=== PATIENT | male | born 1975 | race Hispanic/Latino ===

== ENCOUNTER 2016-11-06 09:25 | Emergency (ER) | payer OTHER ==
[2016-11-06] MEDS ORDERED: NACL 0.9% 1000 ML 1,000 ML IV ONE (09:37)
[2016-11-06] MEDS ORDERED: TORADOL IV ONE (09:37)
[2016-11-06] MEDS ORDERED: ZOFRAN IV ONE (09:38)
[2016-11-06] MEDS ORDERED: DILAUDID IV ONE ×2 (09:47→11:25)
--- NOTE | 2016-11-06 09:47 | Emergency Department Report ---
ED Male HPI - General Stated complaint: LEFT SIDE ABD/BACK/GROIN PAIN Time Seen by Provider: 11/06/16 09:35 - History of Present Illness Initial comments: 41-year-old male with past medical history of diabetes, anxiety and kidney stones. He comes in today for complaint of left side abdomen and back and groin pain that woke him up around 4 AM this morning. Patient reports that his progressively gotten worse. This required for him to come in to be evaluated. Patient does report that he has diabetes and is currently on NovoLog he needs to be on a long-lasting insulin but insurance is trying to work that out. He does report that his diabetes is not stable. He also reports that his on amoxicillin for dental work as well as ibuprofen and Percocet. Does report anxiety and he is on a lot of pram 2 mg extended release daily last dose was yesterday. Patient reports that he's been suffering from kidney stones since 2000. He reports he's had multiple CT scans and at this time prefers not to have one. MD Complaint: groin pain - Related Data Previous Rx's Medication Instructions Recorded Last Taken Type Ibuprofen [Motrin 800 MG tab] 800 mg PO Q8HR PRN #21 tablet 06/26/16 Unknown Rx Ondansetron [Zofran Odt] 4 mg PO Q8HR PRN #12 tab.rapdis 06/26/16 Unknown Rx Tamsulosin [Flomax] 0.4 mg PO QDAY #30 cap 11/06/16 Unknown Rx oxyCODONE /ACETAMINOPHEN [Percocet 1 tab PO Q6HR PRN #8 tablet 11/06/16 Unknown Rx 5/325 mg] Allergies Allergy/AdvReac Type Severity Reaction Status Date / Time lamotrigine [From Lamictal] Allergy Rash Verified 06/25/16 21:56 trazodone Allergy Unknown Verified 06/25/16 21:56 wasp venom Allergy Swelling Verified 06/25/16 21:56 ED Review of Systems ROS: Stated complaint: LEFT SIDE ABD/BACK/GROIN PAIN Other details as noted in HPI Constitutional: denies: chills, fever Eyes: denies: eye pain, eye discharge, vision change ENT: denies: ear pain, throat pain Respiratory: denies: cough, shortness of breath, wheezing Cardiovascular: denies: chest pain, palpitations Endocrine: no symptoms reported Gastrointestinal: abdominal pain (left pelvic pain) Genitourinary: other (left flank pain and left groin pain.) Skin: denies: rash, lesions Neurological: denies: headache, weakness, paresthesias Psychiatric: anxiety ED Past Medical Hx - Past Medical History Hx Diabetes: Yes Hx Kidney Stones: Yes Hx Psychiatric Treatment: Yes (anxiety) Additional medical history: anxiety. adhd - Surgical History Hx Appendectomy: Yes Additional Surgical History: tonsils and adnoids removed. ACDF- 3 levels of fusion. carpal tunnel release. Chiari malformations - Social History Smoking Status: Never Smoker Substance Use Type: Alcohol - Medications Home Medications: Home Medications Medication Instructions Recorded Confirmed Last Taken Type Ibuprofen [Motrin 800 MG tab] 800 mg PO Q8HR PRN #21 tablet 06/26/16 Unknown Rx Ondansetron [Zofran Odt] 4 mg PO Q8HR PRN #12 tab.rapdis 06/26/16 Unknown Rx Tamsulosin [Flomax] 0.4 mg PO QDAY #30 cap 11/06/16 Unknown Rx oxyCODONE /ACETAMINOPHEN [Percocet 1 tab PO Q6HR PRN #8 tablet 11/06/16 Unknown Rx 5/325 mg] ED Physical Exam - General General appearance: alert, in no apparent distress, anxious, other (nontoxic) - Head Head exam: Present: atraumatic - ENT ENT exam: Present: normal exam, mucous membranes moist - Neck Neck exam: Present: normal inspection, full ROM - Respiratory Respiratory exam: Present: normal lung sounds bilaterally - Cardiovascular Cardiovascular Exam: Present: regular rate, normal rhythm - GI/Abdominal GI/Abdominal exam: Present: soft, tenderness (left lower groin area), normal bowel sounds. Absent: distended - Extremities Exam Extremities exam: Present: normal inspection, full ROM ED Course Vital Signs 11/06/16 10:21 Temperature 98.3 F Pulse Rate 110 H Respiratory 18 Rate Blood Pressure 121/64 O2 Sat by Pulse 98 Oximetry ED Medical Decision Making - Lab Data Result diagrams: 11/06/16 10:47 11/06/16 10:47 - Radiology Data Radiology results: report reviewed, image reviewed IMPRESSION: Unremarkable abdomen. No nephrolithiasis is confidently identified on x-ray. Transcribed By: TTR Dictated By: DELGADO VARMA JR, MD Electronically Authenticated By: DELGADO VARMA JR, MD Signed Date/Time: 11/06/16 1125 - Medical Decision Making Patient's been evaluated by this provider fast track. IV insertion was placed, Toradol normal saline Dilaudid was ordered for patient. Ativan was ordered 1 mg Urinalysis CBC BMP CT was ordered. Patient CT request and a KUB. Discusses patient importance of a CAT scan just to notice if there is any obstruction patient verbalized understanding we will do a KUB to evaluate where the stone possibly could be. To be continually monitored. Critical care attestation.: If time is entered above; I have spent that time in minutes in the direct care of this critically ill patient, excluding procedure time. ED Disposition Clinical Impression: Flank pain, acute, Diabetes 1.5, managed as type 2 Disposition: DISCHARGED TO HOME OR SELFCARE Is pt being admited?: No Does the pt Need Aspirin: No Condition: Stable Instructions: Flank Pain (ED), Diabetes Mellitus Type 2 in Adults (ED) Additional Instructions: Please follow up with a urologist for further evaluation. Pain medication as prescribed. Prescriptions: oxyCODONE /ACETAMINOPHEN [Percocet 5/325 mg] 1 tab PO Q6HR PRN #8 tablet PRN Reason: Pain Tamsulosin [Flomax] 0.4 mg PO QDAY #30 cap Referrals: PRIMARY CARE, [Primary Care Provider] - 3-5 Days STANLEY ADAM MD [Staff Physician] - 3-5 Days NANCY MANCINI MD [Staff Physician] - 3-5 Days Forms: Work/School Release Form(ED)
[2016-11-06 10:26] VITALS: BP 121/64
[2016-11-06] MEDS ORDERED: XANAX PO ONE (10:41)
[2016-11-06 11:08] LABS: Hemoglobin 13.1 gm/dl (11.8-15.2); Mean Corpuscular HGB Conc 34 % (32-34); Mean Corpuscular Hemoglobin 29 pg (28-32); Mean Corpuscular Volume 84 fl (84-94); Platelet Count 177 K/mm3 (140-440); Red Blood Count 4.55 M/mm3 (3.65-5.03); Red Cell Distribution Width 13.3 % (13.2-15.2); White Blood Count 6.7 K/mm3 (4.5-11.0)
[2016-11-06 11:23] LABS: Anion Gap 17 mmol/L; BUN/Creatinine Ratio 11.42; Blood Urea Nitrogen 8 mg/dL (9-20); Calcium 8.4 mg/dL (8.4-10.2); Carbon Dioxide 20 mmol/L (22-30); Chloride 102.7 mmol/L (98-107); Glucose 330 mg/dL (75-100); Sodium 136 mmol/L (137-145)
--- NOTE | 2016-11-06 11:32 | XRay Report ---
SUPINE KUB: History: Kidney stone. The abdominal gas pattern is unremarkable. No masses or organomegaly is identified and there is no gross evidence of free air or fluid. No significant soft tissue calcifications are noted. IMPRESSION: Unremarkable abdomen. No nephrolithiasis is confidently identified on x-ray.
[2016-11-06 12:25] LABS: Bilirubin,Urine NEG (Negative); Blood,Urine NEG (Negative); Ketones,Urine 20 mg/dL (Negative); Leukocyte Esterase,Urine NEG (Negative); Mucus,Urine FEW /HPF; Nitrite,Urine NEG (Negative); Protein,Urine <15 mg/dL mg/dL (Negative); Urobilinogen,Urine < 2.0 mg/dL (<2.0)
== END 2016-11-06 13:26 | disposition home or self-care (01) ==
LOC: ED 09:25
DX: R10.32 Left lower quadrant pain (principal); E11.9 Type 2 diabetes mellitus without complications; F41.9 Anxiety disorder, unspecified; Z79.4 Long term (current) use of insulin; Z91.038 Other insect allergy status; Z88.8 Allergy status to other drugs, medicaments and biological substances
CPT/HCPCS: 36415; 74000; 80048; 81001; 82962; 85027; 96361; 96374; 96375; 96376; 99284; J1170; J1885; J2405; J7030

== ENCOUNTER 2017-01-02 11:14 | Emergency (ER) | payer OTHER ==
[2017-01-02] MEDS ORDERED: NACL 0.9% 1000 ML 1,000 ML ONE (11:50)
[2017-01-02] MEDS ORDERED: MORPHINE IV ONE (12:07)
--- NOTE | 2017-01-02 12:08 | Emergency Department Report ---
HPI - General Chief Complaint: Abdominal Pain Time Seen by Provider: 01/02/17 11:46 - HPI HPI: This is a 41-year-old male who presents to emergency Department with complaint of pain to the left side of the back and flank and he believes it is a kidney stone. His history of multiple kidney stones and says that this feels the same. He says that he usually passes it on his own. He denies any dysuria or hematuria. The pain was mild last night and he was able to fall sleep but he woke up with a significant amount of pain. He took a Percocet for his discomfort without much relief. He goes to an urgent care for primary care needs and his urologist is Dr. Ku. 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 No recent travel or sick contacts at home. He denies any tobacco abuse. ED Past Medical Hx - Past Medical History Hx Diabetes: Yes Hx Kidney Stones: Yes Hx Psychiatric Treatment: Yes (anxiety / ADHD) Additional medical history: anxiety. adhd - Surgical History Hx Appendectomy: Yes Additional Surgical History: tonsils and adnoids removed. ACDF- 3 levels of fusion. carpal tunnel release. Chiari malformations. KIDNEY STONE REMOVAL - Social History Smoking Status: Never Smoker Substance Use Type: None - Medications Home Medications: Home Medications Medication Instructions Recorded Confirmed Last Taken Type Ibuprofen [Motrin 800 MG tab] 800 mg PO Q8HR PRN #21 tablet 06/26/16 Unknown Rx Ondansetron [Zofran Odt] 4 mg PO Q8HR PRN #12 tab.rapdis 06/26/16 Unknown Rx Tamsulosin [Flomax] 0.4 mg PO QDAY #30 cap 11/06/16 Unknown Rx oxyCODONE /ACETAMINOPHEN [Percocet 1 tab PO Q6HR PRN #8 tablet 11/06/16 Unknown Rx 5/325 mg] ED Review of Systems ROS: Stated complaint: POSS KIDNEY STONE Other details as noted in HPI Comment: All other systems reviewed and negative Constitutional: denies: chills, fever Eyes: denies: eye pain, eye discharge, vision change ENT: denies: ear pain, throat pain Respiratory: denies: cough, shortness of breath, wheezing Cardiovascular: denies: chest pain, palpitations Gastrointestinal: abdominal pain (flank pain). denies: nausea Genitourinary: denies: urgency, dysuria Musculoskeletal: back pain. denies: joint swelling, arthralgia Skin: denies: rash, lesions Neurological: denies: headache, weakness, paresthesias Physical Exam - Physical Exam Vital Signs: Vital Signs 01/02/17 11:25 Temperature 98.5 F Pulse Rate 84 Respiratory 22 Rate Blood Pressure 172/84 O2 Sat by Pulse 100 Oximetry Physical Exam: GENERAL: The patient is well-developed well-nourished. HEENT: Normocephalic. Atraumatic. Extraocular motions are intact. Patient has moist mucous membranes. Pupils equal reactive to light bilaterally. NECK: Supple. Trachea is midline. CHEST/LUNGS: Clear to auscultation. There is no respiratory distress noted. HEART/CARDIOVASCULAR: Regular. There is no tachycardia. There is no gallop rub or murmur. ABDOMEN: Abdomen is soft. Unable to reproduce left flank pain to palpation. Patient has normal bowel sounds. There is no abdominal distention. SKIN: Skin is warm and dry. NEURO: The patient is awake, alert, and oriented. The patient is cooperative. The patient has no focal neurologic deficits. The patient has normal speech. MUSCULOSKELETAL: There is no tenderness or deformity. There is no limitation range of motion. There is no evidence of acute injury. BACK: No midline thoracic or lumbar tenderness to palpation or deformity. Positive left CVA tenderness to palpation. ED Course Vital Signs 01/02/17 11:25 Temperature 98.5 F Pulse Rate 84 Respiratory 22 Rate Blood Pressure 172/84 O2 Sat by Pulse 100 Oximetry ED Medical Decision Making - Lab Data Result diagrams: 01/02/17 11:57 01/02/17 11:57 - Radiology Data Radiology results: report reviewed, image reviewed interpreted by me: Abdominal x-ray shows a large amount of bowel gas and stool throughout the intestines. Renal ultrasound does not show any hydronephrosis, calculus or any acute processes. CT ABDOMEN AND PELVIS WITHOUT CONTRAST INDICATION: Abdominal pain. COMPARISON: None similar. FINDINGS: Noncontrast abdomen and pelvis CT performed. LUNG BASES: Nonspecific distal esophageal wall prominence/thickening, not excluded for gastroesophageal reflux and/or hiatal hernia, amongst others. ABDOMEN: Please note that sensitivity to detect small visceral lesions is limited due to the absence of intravenous or oral contrast. However, grossly unremarkable unenhanced liver, spleen, gallbladder, pancreas, adrenals, nonaneurysmal abdominal aorta, IVC and kidneys. No ascites or size significant adenopathy. Few small right lower quadrant mesenteric lymph nodes measure up to 7 mm, axial image 125, series 2. Nonopacified GI tract evaluation limited, though grossly nonobstructive. Few right lower quadrant probable appendectomy clips. Mild to moderate colonic stool/possible constipation. Tiny fat-containing umbilical hernia with a neck of 4 mm. PELVIS: Grossly unremarkable non-opacified urinary bladder, seminal vesicles, prostate and rectosigmoid. Small left hemipelvic phlebolith. No free fluid or significant adenopathy. No acute osseous abnormality. CONCLUSION: No acute CT abnormality with few incidental findings, as above. - Medical Decision Making 41-year-old male presents with left-sided flank pain that he feels is very consistent with previous kidney stones. Labs are mostly unremarkable including no urinary tract infection or significant hematuria. A renal ultrasound was done to try and avoid any type of CT imaging. The ultrasound did not show any hydronephrosis, calculus or any acute process. I then did a KUB x-ray hoping to see some type of calculus but once again it just showed some signs of nonobstructive bowel gas and increased stool. The patient continues to say that he has significant discomfort so a CT of the abdomen and pelvis was done that also did not show any calculus or any acute process. Patient was given IV fluid resuscitation, pain medication, and upon reevaluation he says he is feeling improved. He has a significant amount of pain medication at home from his pain management physician. He says that he has good follow-up with primary care, gastroenterology, urology. He will return to the ED with any worsening symptoms or any acute distress. The patient presented with a blood sugar that was about 550. There is a mild anion gap and some mild venous acidosis. However the patient was given some IV fluid resuscitation, IV insulin and his blood sugar came down to about 260. I am not convinced that he is in any significant DKA. The patient admits to drinking a large amount of Gatorade over the past 12 hours or so in order to "flush my system." He will go back to his normal diabetes diet and medication regiment and will follow-up with his primary care doctor at the urgent care. - Differential Diagnosis nephrolithiasis, cholelithiasis, hydronephrosis, pancreatitis, colitis ana Critical Care Time: No Critical care attestation.: If time is entered above; I have spent that time in minutes in the direct care of this critically ill patient, excluding procedure time. ED Disposition Clinical Impression: Left flank pain, Hyperglycemia Hypertension Qualifiers: Hypertension type: essential hypertension Qualified Code(s): I10 - Essential ( primary) hypertension Disposition: DC- TO HOME OR SELFCARE Is pt being admited?: No Condition: Stable Instructions: Hypertension (ED), Flank Pain (ED), Diabetic Hyperglycemia (ED) Additional Instructions: Please follow-up with your primary care doctor. It is also recommended that she see your automobile club membership sales agent. Return to the emergency department with any worsening of your symptoms or any acute distress. Please try and stay away from foods are high in salt and caffeinated products to help with her blood pressure. Please try and stay away from foods are high and sugar, carbohydrates and starches to help with her diabetes. Continue with your diabetes regimen. Referrals: PRIMARY CARE, [Primary Care Provider] - [facility] Time of Disposition: 15:09
[2017-01-02 12:16] LABS: Basophils % (Auto) 0.9 % (0.0-1.8); Eosinophils % (Auto) 0.6 % (0.0-4.3); Hematocrit 43.7 % (35.5-45.6); Hemoglobin 15.1 gm/dl (11.8-15.2); Mean Corpuscular HGB Conc 35 % (32-34); Mean Corpuscular Hemoglobin 30 pg (28-32); Mean Corpuscular Volume 85 fl (84-94); Platelet Count 167 K/mm3 (140-440); Red Blood Count 5.13 M/mm3 (3.65-5.03); Red Cell Distribution Width 13.5 % (13.2-15.2); White Blood Count 10.3 K/mm3 (4.5-11.0)
[2017-01-02 12:21] LABS: Bilirubin,Urine NEG (Negative); Blood,Urine NEG (Negative); Ketones,Urine NEG (Negative); Leukocyte Esterase,Urine NEG (Negative); Mucus,Urine FEW /HPF; Nitrite,Urine NEG (Negative); Protein,Urine <15 mg/dL mg/dL (Negative); RBC,Urine < 1.0 /HPF (0.0-6.0); Urobilinogen,Urine < 2.0 mg/dL (<2.0); WBC,Urine < 1.0 /HPF (0.0-6.0)
[2017-01-02] MEDS ORDERED: DILAUDID ONE (12:21)
[2017-01-02 12:27] LABS: Albumin 4.1 g/dL (3.9-5); Albumin/Globulin Ratio 1.7 %; Alkaline Phosphatase 92 units/L (35-129); Anion Gap 20 mmol/L; BUN/Creatinine Ratio 8.75; Bilirubin,Total < 0.20 mg/dL (0.1-1.2); Blood Urea Nitrogen 7 mg/dL (9-20); Calcium 9.5 mg/dL (8.4-10.2); Carbon Dioxide 22 mmol/L (22-30); Chloride 92.8 mmol/L (98-107); Sodium 131 mmol/L (137-145); Total Protein 6.5 g/dL (6.3-8.2)
[2017-01-02 12:31] LABS: Glucose 560 mg/dL (75-100)
[2017-01-02] MEDS ORDERED: DILAUDID IV ONE ×3 (12:31→14:51)
[2017-01-02] MEDS ORDERED: NACL 0.9% 1000 ML 1,000 ML IV ONE ×3 (12:34→13:31)
[2017-01-02 12:41] LABS: Alanine Aminotransferase < 5 units/L (7-56)
--- NOTE | 2017-01-02 13:27 | Ultrasound Report ---
ULTRASOUND RENAL INDICATION: Flank pain. History of kidney stones, passed per patient. COMPARISON: 06/25/2016. FINDINGS: Renal sonography demonstrates normal renal cortical echogenicity. Grossly preserved renal contours. No hydronephrosis. Imaged liver appears coarse, echogenic and enlarged to approximately 19 cm in length. RIGHT KIDNEY measures 10.5 x 6.1 x 5 cm with cortical thickness of 1.7 cm. LEFT KIDNEY estimated at 11.9 x 5.8 x 6.1 cm with cortical thickness of 2.3 cm. URINARY BLADDER suboptimally distended and assessed, though grossly unremarkable in so far seen. CONCLUSION: No acute renal sonographic abnormality with fatty, enlarged liver suspected, as described. Please correlate. Thank you for the opportunity to participate in this patient's care.
--- NOTE | 2017-01-02 14:47 | XRay Report ---
ABDOMEN RADIOGRAPHS INDICATION: Flank pain. Evaluate for stone. COMPARISON: 11/06/2016 FINDINGS: Frontal abdominal radiographs demonstrate nonobstructive bowel gas pattern without focal suspicious calcifications, pneumatosis or pneumoperitoneum. Moderate colonic stool/possible constipation. Lung bases not included. Mild spinal curvature/possible scoliosis. CONCLUSION: Possible constipation without acute radiographic abnormality. Please correlate. Thank you for the opportunity to participate in this patient's care.
--- NOTE | 2017-01-02 14:55 | Cat Scan Report ---
CT ABDOMEN AND PELVIS WITHOUT CONTRAST INDICATION: Abdominal pain. COMPARISON: None similar. FINDINGS: Noncontrast abdomen and pelvis CT performed. LUNG BASES: Nonspecific distal esophageal wall prominence/thickening, not excluded for gastroesophageal reflux and/or hiatal hernia, amongst others. ABDOMEN: Please note that sensitivity to detect small visceral lesions is limited due to the absence of intravenous or oral contrast. However, grossly unremarkable unenhanced liver, spleen, gallbladder, pancreas, adrenals, nonaneurysmal abdominal aorta, IVC and kidneys. No ascites or size significant adenopathy. Few small right lower quadrant mesenteric lymph nodes measure up to 7 mm, axial image 125, series 2. Nonopacified GI tract evaluation limited, though grossly nonobstructive. Few right lower quadrant probable appendectomy clips. Mild to moderate colonic stool/possible constipation. Tiny fat-containing umbilical hernia with a neck of 4 mm. PELVIS: Grossly unremarkable non-opacified urinary bladder, seminal vesicles, prostate and rectosigmoid. Small left hemipelvic phlebolith. No free fluid or significant adenopathy. No acute osseous abnormality. CONCLUSION: No acute CT abnormality with few incidental findings, as above. Thank you for the opportunity to participate in this patient's care.
[2017-01-02 15:31] VITALS: BP 122/64
== END 2017-01-02 15:38 | disposition home or self-care (01) ==
LOC: ED 11:14
DX: E11.65 Type 2 diabetes mellitus with hyperglycemia (principal); R10.30 Lower abdominal pain, unspecified
CPT/HCPCS: 36415; 74000; 74176; 76770; 80053; 81001; 82805; 82962; 85025; 96361; 96374; 96375; 96376; 99284; J1170; J7030; J1815; J2270

== ENCOUNTER 2017-03-13 11:39 | Inpatient (IN) | payer OTHER ==
[2017-03-13 12:31] LABS: Basophils % (Auto) 0.8 % (0.0-1.8); Eosinophils % (Auto) 0.2 % (0.0-4.3); Hemoglobin 16.1 gm/dl (11.8-15.2); Mean Corpuscular HGB Conc 34 % (32-34); Mean Corpuscular Hemoglobin 29 pg (28-32); Mean Corpuscular Volume 88 fl (84-94); Platelet Count 204 K/mm3 (140-440); Red Blood Count 5.48 M/mm3 (3.65-5.03); Red Cell Distribution Width 13.7 % (13.2-15.2); White Blood Count 9.9 K/mm3 (4.5-11.0)
[2017-03-13 12:38] LABS: Alanine Aminotransferase 27 units/L (7-56); Albumin 5.1 g/dL (3.9-5); Albumin/Globulin Ratio 2.1 %; Alkaline Phosphatase 110 units/L (35-129); Anion Gap 25 mmol/L; Blood Urea Nitrogen 9 mg/dL (9-20); Calcium 9.9 mg/dL (8.4-10.2); Carbon Dioxide 23 mmol/L (22-30); Chloride 91.1 mmol/L (98-107); Lipase 25 units/L (13-60); Potassium 4.4 mmol/L (3.6-5.0); Sodium 135 mmol/L (137-145); Total Protein 7.5 g/dL (6.3-8.2)
[2017-03-13 12:40] LABS: Glucose 507 mg/dL (75-100)
[2017-03-13] MEDS ORDERED: DILAUDID IV ONE ×3 (12:57→18:53)
[2017-03-13] MEDS ORDERED: ZOFRAN IV ONE (12:57)
[2017-03-13] MEDS ORDERED: TORADOL IM ONE ×2 (12:57→19:49)
[2017-03-13] MEDS ORDERED: BENADRYL IV ONE (12:58)
[2017-03-13] MEDS ORDERED: NACL 0.9% 1000 ML 1,000 ML IV ONE ×3 (12:59→19:49)
--- NOTE | 2017-03-13 13:26 | Emergency Department Report ---
ED General Adult HPI - General Chief complaint: Abdominal Pain Stated complaint: KIDNEYSTONE/FLANK PAIN Time Seen by Provider: 03/13/17 12:57 Source: patient Mode of arrival: Ambulatory Limitations: No Limitations - History of Present Illness Initial comments: Patient complains of left flank pain which she states radiates to the left inguinal area. The onset was acute 2 hours ago. The patient denies nausea or vomiting. He states that he was here 2 months ago and had a CT scan which failed to show any thing acute and no evidence of kidney stones or hydronephrosis. He states that this pain is different than his previous kidney stone pain. Review of the patient's previous records indicate that he has been here 4 times for kidney stone evaluation since 2016. He has had a negative workup every time. He also admits that he was seen for similar pain [address] [facility]. He states "they didn't do much there". He states that he was told he had a fever which improved and that he was given IV Rocephin. Initially the patient states that he took his insulin today. Later he tells me that he just took his Lantus last night. He admits to me that he is under the care of a pain management physician in [facility] since [facility]. 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 He states that he takes Percocet every day for pain but didn't take any today because he was out of town at work. Apparently the nurses did reconcile the patient's medicine which included both amphetamines and benzodiazepines. He neglected to mention his chronic pain management with Percocet. -: Sudden, minutes(s) Location: left (flank) Radiation: other (left inguinal) Severity scale (0 -10): 9 Quality: aching Consistency: constant Improves with: none Worsens with: none Associated Symptoms: denies other symptoms Treatments Prior to Arrival: none - Related Data Home Medications Medication Instructions Recorded Confirmed Last Taken ALPRAZolam [Xanax TAB] 1 mg PO BID PRN 03/13/17 03/13/17 03/12/17 ALPRAZolam [Xanax XR TAB] 2 mg PO QAM PRN 03/13/17 03/13/17 03/12/17 Dextroamphetamine/Amphetamine 10 mg PO DAILY 03/13/17 03/13/17 03/13/17 [Amphetamine Salts 10 mg Tablet] Melatonin [Melatin] 3 mg PO DAILY 03/13/17 03/13/17 03/13/17 Minocycline HCl [Minocin] 100 mg PO DAILY 03/13/17 03/13/17 03/12/17 Zolpidem [Ambien] 10 mg PO QHS 03/13/17 03/13/17 Unknown Allergies Allergy/AdvReac Type Severity Reaction Status Date / Time lamotrigine [From Lamictal] Allergy Rash Verified 03/13/17 11:54 trazodone Allergy Unknown Verified 03/13/17 11:54 wasp venom Allergy Swelling Verified 03/13/17 11:54 ED Review of Systems ROS: Stated complaint: KIDNEYSTONE/FLANK PAIN Other details as noted in HPI Constitutional: denies: chills, fever Eyes: denies: eye pain, eye discharge, vision change ENT: denies: ear pain, throat pain Respiratory: denies: cough, shortness of breath, wheezing Cardiovascular: denies: chest pain, palpitations Endocrine: no symptoms reported Gastrointestinal: as per HPI, abdominal pain. denies: nausea, diarrhea Genitourinary: denies: urgency, dysuria Musculoskeletal: denies: back pain, joint swelling, arthralgia Skin: denies: rash, lesions Neurological: denies: headache, weakness, paresthesias Psychiatric: denies: anxiety, depression Hematological/Lymphatic: denies: easy bleeding, easy bruising ED Past Medical Hx - Past Medical History Previous Medical History?: Yes Hx Diabetes: Yes Hx Kidney Stones: Yes Hx Psychiatric Treatment: Yes (anxiety / ADHD) Additional medical history: anxiety. adhd. benign tremor - Surgical History Past Surgical History?: Yes Hx Appendectomy: Yes Additional Surgical History: tonsils and adnoids removed. ACDF- 3 levels of fusion. carpal tunnel release. Chiari malformations. KIDNEY STONE REMOVAL - Social History Smoking Status: Former Smoker Substance Use Type: None - Medications Home Medications: Home Medications Medication Instructions Recorded Confirmed Last Taken Type ALPRAZolam [Xanax TAB] 1 mg PO BID PRN 03/13/17 03/13/17 03/12/17 History ALPRAZolam [Xanax XR TAB] 2 mg PO QAM PRN 0803/13/17 03/12/17 History Dextroamphetamine/Amphetamine 10 mg PO DAILY 03/13/17 03/13/17 03/13/17 History [Amphetamine Salts 10 mg Tablet] Melatonin [Melatin] 3 mg PO DAILY 03/13/17 03/13/17 03/13/17 History Minocycline HCl [Minocin] 100 mg PO DAILY 03/13/17 03/13/17 03/12/17 History Zolpidem [Ambien] 10 mg PO QHS 03/13/17 03/13/17 Unknown History ED Physical Exam - General Limitations: No Limitations General appearance: alert, anxious (anxious and with disproportionate writhing but will respond to questioning and commands) - Head Head exam: Present: atraumatic, normocephalic - Eye Eye exam: Present: normal appearance, PERRL, EOMI. Absent: scleral icterus - ENT ENT exam: Present: mucous membranes moist - Neck Neck exam: Present: normal inspection - Respiratory Respiratory exam: Present: normal lung sounds bilaterally. Absent: respiratory distress - Cardiovascular Cardiovascular Exam: Present: normal rhythm, tachycardia. Absent: systolic murmur, diastolic murmur, rubs, gallop - GI/Abdominal GI/Abdominal exam: Present: soft, normal bowel sounds. Absent: distended, tenderness, guarding, rebound, rigid - Rectal Rectal exam: Present: deferred - Extremities Exam Extremities exam: Present: normal inspection - Back Exam Back exam: Present: normal inspection - Neurological Exam Neurological exam: Present: alert, oriented X3, CN II-XII intact. Absent: motor sensory deficit - Psychiatric Psychiatric exam: Present: normal affect, normal mood - Skin Skin exam: Present: warm, dry, intact, normal color. Absent: rash ED Course Vital Signs 03/13/17 03/13/17 03/13/17 11:41 12:44 12:45 Temperature 98.1 F Pulse Rate 135 H Respiratory 20 Rate Blood Pressure 145/91 157/100 O2 Sat by Pulse 100 100 100 Oximetry 03/13/17 03/13/17 03/13/17 13:01 13:15 13:31 Temperature Pulse Rate 145 H 150 H 154 H Respiratory 19 35 H 13 Rate Blood Pressure 157/100 157/100 143/89 O2 Sat by Pulse 97 97 100 Oximetry 03/13/17 03/13/17 03/13/17 13:51 14:26 14:30 Temperature Pulse Rate 146 H 141 H 134 H Respiratory 16 15 Rate Blood Pressure 146/85 146/85 124/69 O2 Sat by Pulse 93 96 Oximetry - Reevaluation(s) Reevaluation #1: The patient was given analgesia and anxiolysis. His heart rate is still in the 130s. His urine drug screen is positive for amphetamines and benzodiazepines and negative for opiates. It would seem he may have an opiate withdrawal state. CT of his abdomen was negative for anything acute. Patient was given insulin and fluids. The patient then told me that he wanted to show me something. He showed me a cell phone picture with bright red blood which he states intermittently comes from his rectum. He states he has a history of ulcerative colitis. 03/13/17 15:05 Reevaluation #2: A TSH was also added to the patient's workup. He has a persistent resting tachycardia. He is now disclosed his intermittent rectal bleeding. His hematocrit is actually quite normal to high. I've ordered additional fluids. He appears to have an opioid withdrawal state. Another possibility would be excessive at around to explain his resting tachycardia which obviously has a larger differential diagnosis. I do not see any indication of an occult infection however. Nonetheless I've ordered a lactic acid and blood cultures. Further care and evaluation will be per Dr. White and the hospitalist service. 03/13/17 15:10 03/13/17 15:12 03/13/17 15:14 ED Medical Decision Making - Lab Data Result diagrams: 03/13/17 11:59 03/13/17 11:59 Laboratory Results - last 24 hr 03/13/17 03/13/17 11:59 11:59 WBC 9.9 RBC 5.48 H Hgb 16.1 H Hct 48.0 H MCV 88 MCH 29 MCHC 34 RDW 13.7 Plt Count 204 Lymph % (Auto) 21.8 [place] % (Auto) 5.6 Eos % (Auto) 0.2 Baso % (Auto) 0.8 Lymph # 2.2 Dougherty # 0.6 Eos # 0.0 Baso # 0.1 Seg Neutrophils % 71.6 H Seg Neutrophils # 7.1 Sodium 135 L Potassium 4.4 Chloride 91.1 L Carbon Dioxide 23 Anion Gap 25 BUN 9 Creatinine 0.9 Estimated GFR > 60 BUN/Creatinine Ratio 10.00 Glucose 507 H* Calcium 9.9 Total Bilirubin 0.50 AST 20 ALT 27 Alkaline Phosphatase 110 Total Protein 7.5 Albumin 5.1 H Albumin/Globulin Ratio 2.1 Lipase 25 - EKG Data -: EKG Interpreted by Me EKG shows normal: sinus rhythm Rate: tachycardia - EKG Data Interpretation: no acute changes - Radiology Data Radiology results: report reviewed Critical care attestation.: If time is entered above; I have spent that time in minutes in the direct care of this critically ill patient, excluding procedure time. ED Disposition Clinical Impression: Tachycardia, Opiate withdrawal, Type 2 diabetes mellitus with hyperglycemia, with long-term current use of insulin, Increased anion gap metabolic acidosis, Left flank pain Disposition: OP ADMIT IP TO THIS HOSP Is pt being admited?: Yes Does the pt Need Aspirin: No Condition: Stable Instructions: Diabetes Mellitus Type 2 in Adults (ED) Referrals: PRIMARY CARE, [Primary Care Provider] - 3-5 Days Time of Disposition: 15:15
[2017-03-13] MEDS ORDERED: ATIVAN IV ONE ×2 (13:28→18:54)
[2017-03-13 14:05] LABS: Urine Drugs of Abuse Note Disclamer
[2017-03-13 14:25] LABS: Bilirubin,Urine NEG (Negative); Blood,Urine NEG (Negative); Ketones,Urine NEG (Negative); Leukocyte Esterase,Urine NEG (Negative); Nitrite,Urine NEG (Negative); Protein,Urine <15 mg/dL mg/dL (Negative); Urobilinogen,Urine < 2.0 mg/dL (<2.0)
[2017-03-13 14:30] LABS: WBC,Urine < 1.0 /HPF (0.0-6.0)
--- NOTE | 2017-03-13 14:56 | Cat Scan Report ---
CT ABDOMEN AND PELVIS WITHOUT CONTRAST INDICATION: Abdominal pain. COMPARISON: 01/02/2017 FINDINGS: Noncontrast abdomen and pelvis CT performed. LUNG BASES: Nonspecific distal esophageal wall prominence/thickening, not excluded for gastroesophageal reflux and/or hiatal hernia, amongst others. ABDOMEN: Please note that sensitivity to detect small visceral lesions is limited due to the absence of intravenous or oral contrast. Right hepatic lobe 17.9 cm in mid clavicular length. Otherwise grossly unremarkable unenhanced liver, spleen, gallbladder, pancreas, adrenals, aorta, IVC and kidneys. No ascites or size significant adenopathy with few small right lower quadrant lymph nodes again noted measuring up to 7 mm. Nonopacified GI tract evaluation limited, though grossly nonobstructive. Few stable right lower quadrant surgical clips, though base of the appendix may be noted, axial images [id number], series 2. Colonic stool, greatest along the ascending colon/possible constipation. Tiny fat-containing umbilical hernia again noted. PELVIS: Urinary bladder, seminal vesicles, prostate and rectosigmoid demonstrate grossly normal CT appearance. No free fluid or significant adenopathy. No acute osseous abnormality. CONCLUSION: No acute CT abnormality on this unenhanced exam with few incidental findings, including distal esophageal prominence/thickening and possible constipation, amongst others, as above. Please correlate. Thank you for the opportunity to participate in this patient's care.
--- NOTE | 2017-03-13 15:00 | History and Physical Report ---
History of Present Illness Chief complaint: My stomach hurts History of present illness: 41 YO Male with ADD, DM, Generalized Anxiety Disorder, Depression, Nephrolithiasis and Chronic Pain, Ulcerative Colitis presents to ED for evaluation. Pt states that he has experienced acute onset abdominal pain. The pain began 2 hours ago. Pain is 9/10, constant, aching, begins on his left side , and radiates down to the groin. Pt denies NVD. Pt states that he had a large bloody bowel movement today. Pt denies trauma, ingestion of food/water from new or different sources, fever, chills, back pain, foreign travel, or recent ill contacts. Past History Past Medical History: hypertension, other (Ulcerative colitis, ADD, Anxiety, Depression, ) Past Surgical History: appendectomy, tonsillectomy Social history: single. denies: smoking, alcohol abuse, prescription drug abuse Family history: hypertension, other (Ulcerative Colitis) Medications and Allergies Allergies Allergy/AdvReac Type Severity Reaction Status Date / Time lamotrigine [From Lamictal] Allergy Rash Verified 03/13/17 11:54 trazodone Allergy Unknown Verified 03/13/17 11:54 wasp venom Allergy Swelling Verified 03/13/17 11:54 Home Medications Medication Instructions Recorded Confirmed Last Taken Type ALPRAZolam [Xanax TAB] 1 mg PO BID PRN 03/13/17 03/13/17 03/12/17 History ALPRAZolam [Xanax XR TAB] 2 mg PO QAM PRN 03/13/17 03/13/17 03/12/17 History Dextroamphetamine/Amphetamine 10 mg PO DAILY 03/13/17 03/13/17 03/13/17 History [Amphetamine Salts 10 mg Tablet] Melatonin [Melatin] 3 mg PO DAILY 03/13/17 03/13/17 03/13/17 History Minocycline HCl [Minocin] 100 mg PO DAILY 03/13/17 03/13/17 03/12/17 History Zolpidem [Ambien] 10 mg PO QHS 03/13/17 03/13/17 Unknown History Review of Systems Constitutional: no weight loss, no weight gain, no fever, no chills, no sweats Ears, nose, mouth and throat: no ear pain, no ear discharge, no tinnitis, no decreased hearing, no nasal discharge Cardiovascular: no chest pain, no orthopnea, no palpitations, no rapid/ irregular heart beat Respiratory: no cough, no cough with sputum, no excessive sputum, no shortness of breath Gastrointestinal: abdominal pain, hematochezia, no nausea, no vomiting, no diarrhea, no constipation Genitourinary Male: no dysuria, no hematuria, no flank pain, no discharge, no urinary frequency Rectal: bleeding Musculoskeletal: no neck stiffness, no neck pain, no shooting arm pain, no arm numbness/tingling, no low back pain Integumentary: no rash, no pruritis, no wounds, no jaundice, no boils Neurological: no head injury, no transient paralysis, no paralysis, no parathesias, no numbness, no seizures Psychiatric: no anxiety, no memory loss, no change in sleep habits, no insomnia , no hypersomnia, no change in libido Endocrine: no cold intolerance, no heat intolerance, no polyphagia, no excessive thirst, no polydipsia Hematologic/Lymphatic: no easy bruising, no easy bleeding Allergic/Immunologic: no urticaria, no allergic rhinitis, no wheezing Exam - Constitutional Vitals: Temp Pulse Resp BP Pulse Ox 98.1 F 134 H 15 124/69 96 03/13/17 11:41 03/13/17 14:30 03/13/17 14:30 03/13/17 14:30 03/13/17 14:30 General appearance: Present: mild distress - EENT Eyes: Present: PERRL ENT: hearing intact, clear oral mucosa - Neck Neck: Present: supple, normal ROM - Respiratory Respiratory effort: normal Respiratory: bilateral: CTA - Cardiovascular Rhythm: other (tachycardia) - Extremities Extremities: pulses symmetrical, No edema Peripheral Pulses: within normal limits - Abdominal General gastrointestinal: Present: soft, tender, normal bowel sounds. Absent: non-distended, rigid, hepatomegaly, splenomegaly, mass, hernia Male genitourinary: Present: normal - Rectal Rectal Exam: normal exam-external/orifice - Integumentary Integumentary: Present: clear, warm, dry - Musculoskeletal Musculoskeletal: gait normal, strength equal bilaterally - Psychiatric Psychiatric: intact judgment & insight, memory intact, agitated - Neurologic Neurologic: CNII-XII intact, moves all extremities Results - Labs CBC & Chem 7: 03/13/17 11:59 03/13/17 11:59 Labs: Abnormal lab results 03/13/17 03/13/17 03/13/17 Range/Units 11:59 11:59 13:16 RBC 5.48 H (3.65-5.03) M/mm3 Hgb 16.1 H (11.8-15.2) gm/dl Hct 48.0 H (35.5-45.6) % Seg Neutrophils % 71.6 H (40.0-70.0) % Sodium 135 L (137-145) mmol/L Chloride 91.1 L (98-107) mmol/L Glucose 507 H* (75-100) mg/dL POC Glucose 390 H (70-105) Albumin 5.1 H (3.9-5) g/dL Ur Specific [place] (1.003-1.030) 03/13/17 Range/Units 14:01 RBC (3.65-5.03) M/mm3 Hgb (11.8-15.2) gm/dl Hct (35.5-45.6) % Seg Neutrophils % (40.0-70.0) % Sodium (137-145) mmol/L Chloride (98-107) mmol/L Glucose (75-100) mg/dL POC Glucose (70-105) Albumin (3.9-5) g/dL Ur Specific [place] 1.036 H (1.003-1.030) Assessment and Plan - Patient Problems (1) GI bleed Current Visit: Yes Status: Acute Qualifiers: GI bleed type/associated pathology: anorectal hemorrhage Gastritis type: G Qualified Code(s): K62.5 - Hemorrhage of anus and rectum Plan to address problem: GI consulted, ppi therapy, bowel rest, supportive care, HGB stable, no transfusion at this time, (2) Ulcerative colitis Current Visit: Yes Status: Suspected Qualifiers: Ulcerative colitis location: U Digestive disease complication type: D Plan to address problem: Supportive care, pain control, IVF, bowel rest, GI consulted. (3) Hyponatremia syndrome Current Visit: Yes Status: Acute Plan to address problem: IVF resuscitation therapy, monitor uop q shift (4) Accelerated hypertension Current Visit: Yes Status: Acute Plan to address problem: monitor bp q shfit, resume home medication (5) Diabetes Current Visit: Yes Status: Acute Qualifiers: Diabetes mellitus type: D Diabetes mellitus complication status: D Diabetes mellitus complication detail: D Diabetic retinopathy severity: D Proliferative retinopathy type: P Diabetes mellitus macular edema: D Diabetes mellitus medical scribe insulin use: D Laterality: L Chronic kidney disease stage: C Plan to address problem: ADA diet, insulin, accu check (6) DVT prophylaxis Current Visit: Yes Status: Acute
[2017-03-13] MEDS ORDERED: PROTONIX IV ONE (15:04)
[2017-03-13] MEDS ORDERED: PEPCID IV ONE (15:12)
--- NOTE | 2017-03-13 15:12 | Admit Criteria Form ---
Admission Criteria Documentation: GENERAL ADMISSION CRITERIA (Place 'X' for any and all applicable criteria): Admission is indicated for ANY ONE of the following: [ X]I. Hemodynamic instability as indicated by ANY ONE of the following(1)(2 )(3)(4)(5): [ X]a) Vital sign abnormality not readily corrected by appropriate treatment within 12 to 24 hours indicated by ANY ONE of the following: [ ]i) Hypotension [X ]ii) Symptomatic Tachycardia unresponsive to treatment (eg , analgesia, fluids, sedation as indicated) [ ]iii) Orthostatic vital sign changes unresponsive to treatment (eg, fluids) []b) Vital sign abnormality that is severe indicated by ANY ONE of the following: [ ]i) Inadequate perfusion indicated by ANY ONE of the following: [ ]1) Lactic acidosis (greater than 2 mmol/L) [ ]2) New abnormal capillary refill (greater than 3 seconds) [ ]3) Other metabolic acidosis (arterial pH less than 7.35) not otherwise explained [ ]4) Reduced urine output [ ]5) Altered mental status [ ]6) Myocardial Ischemia [ ]v) Mean arterial pressure[A] less than 60 mm Hg [ ]vi) Mean arterial pressure[A] less than 70 mm Hg after 30 minutes of appropriate treatment (eg, fluid resuscitation) [ ]vii) IV inotropic or vasopressor medication required to maintain adequate blood pressure or perfusion [ ]viii) Sustained heart rate greater than 120 beats per minute in adult or child 6 years or older[B]] [ ]II. Hypertension requiring inpatient treatment as indicated by ANY ONE of the following(6)(7)(8): [ ]a) SBP greater than 220 mm Hg or DBP greater than 120 mm Hg despite treatment [ ]b) SBP greater than 140 mm Hg or DBP greater than 100 mm Hg with evidence of acute end organ damage as indicated by ANY ONE of the following: [ ]i) Encephalopathy [ ]ii) Acute renal failure as indicated by new onset of ANY ONE of the following(9)(10)(11)(12)(13): [ ]1) A 3-fold rise in serum creatinine from baseline [ ]2) Serum creatinine greater than 4 mg/dL ( 354 micromoles/L) with acute rise greater than 0.5 mg/dL (44.2 micromoles/L) [ ]3) Reduction of more than 75% in estimated glomerular filtration rate from baseline [ ]4) Estimated glomerular filtration rate less than 35 mL/min/1.73m2 (0.59 mL/sec/1.73m2) in child up to 18 years of age [ ]5) Cessation of urine output indicated by ALL of the following: [ ]A. Adequate volume status [ ]B. Inadequate urine output as indicated by ANY ONE of the following: [ ]a. Urine output less than 0.3 mL/kg/hr for 24 hours [ ]b. Anuria (urine output less than 0.1 mL/kg/hr) for 12 hours [ ]iii) Aortic dissection [ ]iv) Myocardial ischemia [ ]v) Left ventricular heart failure [ ]vi) Retinal hemorrhage [ ]vii) Other significant finding [ ]c) Hypertension in child requiring inpatient treatment as indicated by ALL of the following(14)(15)(16): [ ]i) Outpatient treatment not effective, not available, or not appropriate [ ]ii) SBP or DBP greater than 95th percentile for age [ ]iii) Evidence of acute end organ damage as indicated by ANY ONE of the following: [ ]1) Altered mental status [ ]2) Acute renal failure as indicated by new onset of ANY ONE of the following(9)(10)(11)(12)(13): [ ]A. A 3-fold rise in serum creatinine from baseline [ ]B. Serum creatinine greater than 4 mg/dL (354 micromoles/L) with acute rise greater than 0.5 mg/dL (44.2 micromoles/L) [ ]C. Reduction of more than 75% in estimated glomerular filtration rate from baseline [ ]D. Estimated glomerular filtration rate less than 35 mL/min/1.73m2 (0.59 mL/sec/1.73m2)in child up to 18 years of age [ ]E. Cessation of urine output indicated by ALL of the following: [ ]a. Adequate volume status [ ]b. Inadequate urine output as indicated by ANY ONE of the following: [ ]1) Urine output less than 0.3 mL/kg/hr for 24 hours [ ]2) Anuria (urine output less than 0.1 mL/kg/hr) for 12 hours [ ]3) Severe headache [ ]4) Visual disturbance [ ]5) Retinal hemorrhage [ ]6) Other significant finding [ ]III. Acute cardiac or peripheral ischemia as indicated by ANY ONE of the following: [ ]a) Acute coronary syndrome(17)(18) [ ]b) Acute peripheral ischemia (eg, pulseless, cool, mottled, or cyanotic extremity)(19) [ ]IV. Cardiac arrhythmias or findings of immediate concern indicated by ANY ONE of the following(20)(21): [ ]a) Heart rhythms that are inherently dangerous or unstable indicated by ANY ONE of the following(22)(23)(24): [ ]i) Resuscitated ventricular fibrillation or cardiac arrest [ ]ii) Ventricular escape rhythm [ ]iii) Sustained ventricular tachycardia (30 seconds or more of ventricular rhythm at greater than 100 beats per minute) [ ]iv) Nonsustained ventricular tachycardia and ANY ONE of the following: [ ]1) Suspected cardiac ischemia as cause or consequence of ventricular tachycardia [ ]2) In setting of acute myocarditis [ ]b) Unstable cardiac conduction defects indicated by ANY ONE of the following(24)(25)(26): [ ]i) Type II second-degree atrioventricular block [ ]ii) Third-degree atrioventricular block [ ]iii) New-onset left bundle branch block with suspected myocardial ischemia [ ]c) Any heart rhythm and ANY ONE of the following(22)(23)(27)(28)( 29): [ ] i) Continuous long-term ECG monitoring needed (eg, initiation of drug requiring monitoring for more than 24 hours) [ ] ii) Patient has automatic implanted cardioverter defibrillator that is repeatedly firing, malfunctioning, or in need of immediate adjustment of settings beyond the scope of ambulatory or observation care. [ ]d) Heart rhythms of concern due to ANY ONE of the following: [ ]i) Hypotension [ ]ii) Respiratory distress [ ]iii) Association with other significant symptoms (eg, bradycardia with syncope or ongoing dizziness, supraventricular tachycardia with chest pain) (27)(28) (30) [ ] V. Severe heart failure as indicated by ANY ONE of the following ( 31)(32): [ ]a) Respiratory distress [ ]b) Hypotension [ ]c) Anasarca (refractory to outpatient therapy) [ ]d) Cardiac arrhythmias of immediate concern [ ]e) Myocardial ischemia [ ]. Respiratory abnormalities, including ANY ONE of the following(33)(34) (35)(36): [ ]a) Respiratory rate greater than 30 breaths per minute unresponsive to treatment [A] [ ]b) New saturation of arterial oxygen less than 90% [ ]c) New partial pressure of carbon dioxide greater than 44 mm Hg ( 5.9 kPa) [ ]d) Supplemental oxygen or respiratory treatments needed that are new or not performable at other levels of care [ ]e) New-onset cyanosis [ ]f) Inability to protect airway [ ]g) Chronic lung disease with severe deterioration (not responsive to emergency and observation care treatment as appropriate) as indicated by ANY ONE of the following(34)(36 ): [ ]i) SaO2 5% below baseline in patient with chronic hypoxemia [ ]ii) New requirement for supplemental oxygen to keep SaO2 at baseline or acceptable level [ ]iii) Required supplemental oxygen performable only in acute inpatient setting [ ]iv) Severe airflow or ventilation abnormalities [ ]v) Previously mobile patient unable to walk between rooms [ ]vi Inability to eat or sleep due to dyspnea [ ]vii) Rapid rate of exacerbation onset [ ]viii) Altered mental status ]VII. Severe airflow or ventilation abnormalities (not responsive to emergency and observation care treatment as appropriate) as indicated by ANY ONE of the following(33)(34)(35)(37): [ ]a) PCO2 greater than 42 mm Hg (5.6 kPa) and pH less than 7.35 (new ) [ ]b) Documented PCO2 increased more than 5 mm Hg (0.7 kPa) from disease baseline [ ]c) Airflow measurements [B] less than 60% of previous best or predicted (eg, peak expiratory flow rate less than 300 L/minute) despite intensive emergent treatment [C] [ ]d) Required respiratory treatments that are performable only in acute inpatient setting [ ]VIII. Impending or actual respiratory arrest ( Also use Respiratory Failure GRG for severe respiratory disease and long-term mechanical ventilation patients) [ ]IX. Neurologic abnormalities, including ANY ONE of the following: [ ]a) New findings that suggest ANY ONE of the following: [ ]i) CABLE ARMORER infection(38) [ ]ii) Cerebral bleeding, ischemia, or vasospasm(39)(40) [ ]iii) Increased intracranial pressure, hydrocephalus, or cerebral edema(41)(42)(43) [ ]iv) Spinal cord injury(44) [ ]b) Uncontrolled seizures(45) [ ]c) New-onset coma (eg, [place] coma scale score less than 9) or unexplained abnormal mental status (eg, [place] coma scale score less than 14) [D](41)(46)(47) [ ]X. New-onset severe neurologic findings requiring inpatient care; examples include(42)(48)(49): [ ]a) Papilledema [ ]b) Cerebral edema [ ]c) Mass effect on CT scan [ ]XI. Suspected acute intra-abdominal process with peritoneal signs, abdominal mass, or similar findings (50)(51)(52) [ ]XII. Severe physiologic disorder remaining after emergency or observation level care (as appropriate) as indicated by ANY ONE of the following (53): [ ]a) Significant dehydration [ ]b) Diabetic ketoacidosis [ ]c) Hyperglycemic hyperosmolar state (eg, osmolality greater than 320 mOsm/kg (mmol/kg) [ ]d) Hypoglycemia [ ]e) Other (new) acid-base disorder with pH less than 7.35 or greater than 7.5(54) [ ]f) Thyroid storm (55) [ ]g) Myxedema coma (55) [ ]XIII. Abdominal abnormalities with ANY ONE of the following(56)(57): [ ]a) Absent bowel sounds with complete ileus [ ]b) Signs of intestinal obstruction or peritonitis [E] [ ]c) Nausea and vomiting that cannot be controlled with outpatient or observation care [ ]XIV. Acute renal failure as indicated by new onset of ANY ONE of the following(9)(10)(11)(12)(13): [ ]a) A 3-fold rise in serum creatinine from baseline [ ]b) Serum creatinine greater than 4 mg/dL (354 micromoles/L) with acute rise greater than 0.5 mg/dL (44.2 micromoles/L) [ ]c) Reduction of more than 75% in estimated glomerular filtration rate from baseline [ ]d) Estimated glomerular filtration rate less than 35 mL/min/ 1.73m2 (0.59 mL/sec/1.73m2) in child up to 18 years of age [ ]e) Cessation of urine output indicated by ALL of the following: [ ]i) Adequate volume status [ ]ii) Inadequate urine output as indicated by ANY ONE of the following: [ ]1) Urine output less than 0.3 mL/kg/hr for 24 hours [ ]2) Anuria (urine output less than 0.1 mL/kg/hr) for 12 hours [ ]XV. Significant uremic complications as indicated by ANY ONE of the following(58)(59)(60): [ ]a) Outpatient therapy is ineffective or not feasible for ANY ONE of the following: [ ]i) Severe heart failure [ ]ii) Severehypertension [ ]iii) Pleural effusion [ ]iv) Pericarditis or pericardial effusion [ ]b) Cardiac arrhythmias of immediate concern [ ]c) Intractable nausea or vomiting [ ]d) Recurrent seizures [ ]e) Encephalopathy [ ]f) Bleeding abnormalities (eg, platelet dysfunction) with active (eg, gastrointestinal) bleeding [ ]g) Dialysis indicated before long-term access or ambulatory arrangements can be made [ ]h) Significant metabolic or electrolyte abnormalities (eg, severe acidosis or hyperkalemia) [ ]XVI. High fever or other high-risk infection situation as indicated by ANY ONE of the following(61)(62)(63)(64): [ ]a) Outpatient and observation care antimicrobial treatment unavailable, not effective, or not appropriate [ ]b) Documented bacteremia [ ]c) Temperature greater than 40.5 degrees C (104.9 degrees F) ( oral) [ ]d) Temperature greater than 39.5 degrees C (103.1 degrees F) ( oral) or less than 36 degrees C (96.8 degrees F) (rectal) that does not respond to e treatment and observation care [ ] XVII. Temperature less than 95 degrees F (35 degrees C)(rectal)(65) [ ] XVIII. Severe nutritional abnormalities as indicated by ALL of the following (66)(67): [ ]a) Inability to tolerate or establish sufficient oral or other enteral nutrition in outpatient setting [ ]b) Parenteral nutrition regimen need that must be implemented on inpatient basis [ ] XIX. Severe electrolyte abnormalities indicated by ALL of the following(68) (69)(70): [ ]a) Electrolytes and associated findings are not as expected for patient baseline or acceptable treatment effects. [ ]b) Severe abnormalities indicated by ANY ONE of the following: [ ]i) Sodium less than 130 mEq/L (mmol/L) (new) [ ]ii)Sodium less than 135 mEq/L (mmol/L) with ANY ONE of the following: [ ]1) Uncorrectable (to near normal or chronic baseline) after trial of outpatient and emergency treatment [ ]2) Altered mental status [ ]3) Seizures [ ]4) Severe medical etiology requiring inpatient management (eg, heart failure, hypovolemia) [ ]iii) Sodium greater than 155 mEq/L (mmol/L) [ ]iv) Sodium greater than 150 mEq/L (mmol/L) with ANY ONE of the following: [ ]1) Uncorrectable (to near normal or chronic baseline) with outpatient and emergency treatment [ ]2) Altered mental status [ ]3) Seizures [ ]4) Severe medical etiology (eg, hypovolemia, diabetes insipidus) [ ]v) Potassium less than 2.5 mEq/L (mmol/L) despite outpatient and emergency treatment [ ]vi) Potassium less than 3 mEq/L (mmol/L) with ANY ONE of the following: [ ]1) Weakness [ ]2) Cardiac abnormality (eg, arrhythmia, conduction disturbance) [ ]3) Cardiac ischemia [ ]4) Ileus [ ]5) Ongoing medical cause requiring inpatient management (eg, acute renal wasting or SIADH) [ ]6) Other severe symptoms [ ]vii) Potassium greater than 6.5 mEq/L (mmol/L) [ ]viii) Potassium greater than 5 mEq/L (mmol/L) with ANY ONE of the following: [ ]1) Uncorrectable (to near normal or chronic baseline) with outpatient and emergency treatment [ ]2) Severe ECG findings [F] [ ]3) Acute worsening of renal failure (creatinine greater than 2.5 mg/dL (221 micromoles/L) or significant elevation for age and size) [ ]4) Severe weakness [ ]5) Severe medical etiology (eg, hemolysis, infection, drug overdose) [ ]ix) Calcium less than 7 mg/dL (1.75 mmol/L) despite outpatient and emergency treatment (72) [ ]x) Calcium less than 8 mg/dL (2 mmol/L) with significant symptoms or findings; examples include(72): [ ]1) Altered mental status [ ]2) Muscle spasms [ ]3) Seizures [ ]4) Breathing difficulty [ ]5) Cardiac abnormality (eg, arrhythmia or conduction disturbance) [ ]xi) Calcium greater than 14 mg/dL (3.5 mmol/L)(72) [ ]xii) Calcium greater than 12 mg/dL (3 mmol/L) with ANY ONE of the following(72): [ ]1) Uncorrectable (to near normal or chronic baseline) with outpatient and emergency treatment [ ]2) Significant dehydration or hypovolemia as indicated by ALL of the following(70)(73)(74): [ ]A. Not resolved with initial treatments [ ]B. Clinically significant dehydration as indicated by ANY ONE of the following: [ ]a. Vomiting refractory to outpatient treatment (ie, precluding oral rehydration) [ ]b. Inability to drink [ ]c. Hypernatremia or other electrolyte abnormality unable to be corrected with outpatient and emergency treatment [ ]d. Failure to remain hydrated with outpatient therapy [ ]e. Reduced urine output [ ]f. Hypotension [ ]g. Serious cause for dehydration requiring acute hospitalization (eg, bowel obstruction, increased intracranial pressure, infectious cause) [ ]h. Child with ANY ONE of the following(75): [ ]1) Severe abdominal tenderness [ ]2) Adequate care not available at home [ ]3) Severe dehydration ( greater than 9% loss of body weight) [ ]4) Significant symptoms or findings; examples include: [ ]A. Altered mental status [ ]B. Cardiac abnormality (eg, arrhythmia, conduction disturbance) [ ]C. Malignant etiology requiring inpatient treatment [ ]xiii) Phosphorus less than 1 mg/dL (0.32 mmol/L) [ ]xiv) Phosphorus less than 1.5 mg/dL (0.48 mmol/L) with ANY ONE of the following: [ ]1) Patient unresponsive to outpatient and emergency treatment [ ]2) Significant symptoms or findings; examples include: [ ]A. Weakness [ ]B. Altered mental status [ ]C. Breathing difficulty [ ]D. Seizures [ ]E. Rhabdomyolysis [ ]xv) Phosphorus greater than 10 mg/dL (3.2 mmol/L) [ ]xvi) Phosphorus greater than 4.5 mg/dL (1.45 mmol/L) (new) with ANY ONE of the following: [ ]1) Severe medical etiology (eg, crush injury, acute renal failure) [ ]2) Associated hypocalcemia with significant findings; examples include: [ ]A. Neurologic symptoms [ ]B. Altered mental status [ ]C. Muscle spasms [ ]D. Seizures [ ]E. Breathing difficulty [ ]F. Cardiac abnormality (eg, arrhythmia, conduction disturbance) [ ]xvii) Magnesium less than 1 mg/dL (0.41 mmol/L) [ ]xviii) Magnesium less than 1.5 mg/dL (0.62 mmol/L) with ANY ONE of the following: [ ]1) Patient unresponsive to outpatient and emergency treatment [ ]2) Associated hypocalcemia with significant findings; examples include: [ ]A. Altered mental status [ ]B. Muscle spasms [ ]C. Seizures [ ]D. Breathing difficulty [ ]E. Cardiac abnormality (eg, arrhythmia , conduction disturbance) [ ]3) Associated hypokalemia (potassium less than 3 mEq/L (mmol/L)) with risk of arrhythmia [ ]xix) Magnesium greater than 4 mEq/L (2 mmol/L) [ ]xx) Magnesium greater than 2.5 mEq/L (1.25 mmol/L) with significant symptoms or findings; examples include: [ ]1) Weakness [ ]2) Altered mental status [ ]3) Cardiac abnormality (eg, arrhythmia, conduction disturbance) [ ]4) Breathing difficulty [ ]5) Severe medical etiology (eg, renal failure, hypovolemia) [ ]xxi) Uric acid greater than 20 mg/dL (1190 micromoles/L)(76) [ ]xxii) Uric acid greater than 8 mg/dL (476 micromoles/L) with significant symptoms or findings of tumor lysis syndrome; examples include(76): [ ]1) Creatinine greater than 1.5 times upper limit of normal [ ]2) Cardiac abnormality (eg, arrhythmia, conduction disturbance) [ ]3) Seizure [ ]XX. Acute blood loss causing significant abnormality as indicated by ANY ONE of the following(77)(78): [ ]a) Hemoglobin less than 10 g/dL (100 g/L) (not baseline) [ ]b) Hematocrit less than 30% (0.30) (not baseline) [ ]c) Repeat hematocrit decreased more than 2% (0.02) [ ]d) Uncontrolled bleeding [ ]XXI. Severe anemia indicated by ANY ONE of the following(78)(79): [ ]a) Altered mental status [ ]b) Chest pain [ ]c) Exertional dyspnea [ ]d) Syncope [ ]e) Other findings suggesting inadequate perfusion [ ]f) Treatment with transfusion or volume replacement is ineffective at resolving ANY ONE of the following [G]: [ ]i) Tachycardia for age [ ]ii) Orthostatic vital sign changes as indicated by ANY ONE of the following(80): [ ]1) Fall in SBP of 20 mm Hg or more 1 to 3 minutes after patient sits or stands from recumbent position [ ]2) Fall in DBP of 10 mm Hg or more 1 to 3 minutes after patient sits or stands from recumbent position [ ]XXII. High-risk low platelet count as indicated by ANY ONE of the following( 81)(82): [ ]a) Severe or life-threatening bleeding (eg, intracranial, major gastrointestinal, or extensive mucosal bleeding), with any reduced platelet count [ ]b) Platelet count less than 20,000/mm3 (20 x109/L) with any active bleeding [ ]c) Platelet count less than 10,000/mm3 (10 x109/L) with minor purpura or petechiae [ ]d) Platelet count less than 5000/mm3 (5 x109/L) [ ]e) Low platelet count with hemolytic anemia [ ]XXIII. Disseminated intravascular coagulation(77)(83) [ ]XXIV. Severe adverse drug or systemic toxin reaction requiring inpatient treatment; examples include(84)(85): [ ]a) Serotonin syndrome(86) [ ]b) Neuroleptic malignant syndrome(86) [ ]c) Cholinergic syndrome with severe symptoms (eg, bronchorrhea, weakness, mental status changes, seizures) [ ]d) Sympathetic syndrome with severe symptoms (eg, seizures, mental status changes, cardiac dysrhythmias) [ ]e) Anticholinergic syndrome [ ]XXV. Severe pain requiring acute inpatient management as indicated by ALL of the following (87)(88)(89): [ ]a) Continuous or frequent (eg, every 2 to 4 hours) parenteral analgesics required [H] [ ]b) Rapid improvement expected from treatment or acute intervention (eg, surgery, anesthesia procedure) [ ]XXVI.Severe behavioral health issues judged unmanageable at a lower level of care (eg, residential) in a patient who is ANY ONE of the following(91) [ ]a) Acutely suicidal [ ]b) A danger to self (eg, self-mutilating or suicidal behavior) [ ]c) A danger to others (eg, assaultive or homicidal behavior) [ ]d) Incapacitated because of grave disability (eg, inability to provide for self at lower level of care) (92) [ ]XXVII. Inpatient monitoring needed; examples include(1)(3)(87)(93)(94)(95)(96 ): [ ]a) Vital signs, neurologic signs, or vascular checks more frequently than every 4 hours [ ]b) Cardiac or respiratory monitoring beyond the scope (eg, over 24 hours) of observation care [ ]c) Pulmonary artery catheter monitoring [ ]d) Suspected compartment syndrome(97) (98) [ ]e) Cerebral bleeding, hydrocephalus, or vasospasm monitoring [ ]f) Increased intracranial pressure or cerebral edema monitoring [ ]g) monitoring [ ]XXVIII. Treatment requiring inpatient care; examples include: [ ]a) IV fluid to replace significant ongoing losses (greater than 3 L/m2 per day)(53) [ ]b) High concentration oxygen (greater than 40%)(33)(99)(100) [ ]c) Frequent respiratory therapy (more frequently than every 4 hours) to maintain airflow rates greater than 60% of baseline(33)(99)(100) [ ]d) Epidural analgesia(87) [ ]e) IV anticoagulation, vasoactive, or antiarrhythmic medication(19 )(23) [ ]f) Acute thrombolytics (generally require 24 hours of observation )(101)(102) [ ]XXIX. Emergency procedures needed; examples include: [ ]a) Emergency inpatient surgery [ ]b) Temporary pacemaker placement(103) [ ]c) Chest tube placement with active evacuation (eg, suction, drainage)(104) [ ]d) Emergent cardioversion(105) [ ]e) Emergent cardiac or vascular procedures (eg, cardiac catheterization, angioplasty) (17)(18) [ ]f) Emergent dialysis access placement and institution(10)(106) [ ]g) Emergent pericardiocentesis(107) [ ]h) Emergent plasmapheresis or leukapheresis(83) [ ]i) Emergent tracheostomy The original [employer] content created by [employer] has been revised. The portions of the content which have been revised are identified through the use of italic text or in bold, and [employer] has neither reviewed nor approved the modified material. All other unmodified content is copyright [employer]. Please see references footnoted in the original [employer] edition 2016 Admission Criteria Met: Yes
[2017-03-13] MEDS ORDERED: DULCOLAX PR PRN (16:14)
[2017-03-13] MEDS ORDERED: MILK OF MAGNESIA PO PRN (16:14)
[2017-03-13] MEDS ORDERED: ZOFRAN IV PRN ×2 (16:14→16:16)
[2017-03-13] MEDS ORDERED: TYLENOL PO PRN ×2 (16:14→16:16)
[2017-03-13] MEDS ORDERED: NACL 0.45% 1000 ML 1,000 ML IV SCH (17:00)
[2017-03-13] MEDS ORDERED: ALPRAZOLAM 2 MG PO PRN (18:53)
[2017-03-13] MEDS ORDERED: ATIVAN ONE (18:58)
[2017-03-13] MEDS ORDERED: DILAUDID ONE (18:58)
[2017-03-13] MEDS ORDERED: TORADOL ONE (19:48)
[2017-03-13] MEDS ORDERED: NACL 0.9% 1000 ML 1,000 ML ONE (19:48)
[2017-03-13] MEDS ORDERED: D50W (25GM) Syringe IV PRN (20:16)
[2017-03-13] MEDS ORDERED: AMBIEN PO SCH (22:00)
[2017-03-13] MEDS: DILAUDID IV PRN (23:01)
[2017-03-13] MEDS: NOVOLOG SUB-Q SCH (23:55)
[2017-03-14] MEDS: DILAUDID IV PRN ×3 (02:56→11:30)
[2017-03-14] MEDS ORDERED: XANAX PO PRN (07:30)
[2017-03-14] MEDS: NOVOLOG SUB-Q SCH ×2 (08:22→12:15)
[2017-03-14 09:26] VITALS: BP 124/85
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
[2017-03-14] MEDS ORDERED: NON-FORMULARY (Melatonin [Melatin] 3 MG) PO SCH (10:00)
[2017-03-14] MEDS ORDERED: DEXTROAMPHETAMINE PO SCH (10:00)
[2017-03-14] MEDS ORDERED: AMPHETAMINE PO SCH (10:00)
[2017-03-14] MEDS ORDERED: MINOCYCLINE HCL 100 MG PO SCH (10:00)
--- NOTE | 2017-03-14 10:11 | Gastroenterology Consultation ---
<SAMEER GALVEZ - Last Filed: 03/14/17 09:57> History of Present Illness - Reason for Consult Consult date: 03/14/17 GI bleed Requesting physician: DAVID FRIEND - History of Present Illness Patient is a 41 y/o male who presented to the ER with c/o abd pain and [address] scan was negative for any acute process. PMH significant for ADD, DM, generalized anxiety disorder, depression, chronic neck/back pain, and nephrolithiasis with chronic pain. He is seen by pain management and takes daily Percocet to which he states he did not take yesterday prior to abd pain developing (possible opiate withdrawal). This morning pt was resting in bed, no acute distress. C/o abd pain and occasional nausea. States he has had intermittent bright red blood on TP and in toilet after BMs x 3-4 months. He reports last BM was yesterday with a scant amount of bright red blood on TP. No BM or active bleeding since admission. HGB is WNL. Reports a Fhx of ulcerative colitis with his father, PGM, and uncle. He states he underwent an EGD and colonoscopy approximately [address] Beyer in [place] that revealed gastric erosions and a normal colon. He denies having UC himself. He admits to frequent heartburn with daily use of Ibuprofen, but denies hematemesis or melena. Also denies CP, SOB, dizziness, fever, vomiting, diarrhea, or constipation. Past History Past Medical History: diabetes, hypertension, other (, ADD, Anxiety, Depression , nephrolithiasis ) Past Surgical History: appendectomy, tonsillectomy, Other (herniated disc in neck, carpel tunnel) Social history: single. denies: smoking, alcohol abuse, prescription drug abuse Family history: hypertension, other (Ulcerative Colitis) Medications and Allergies Allergies Allergy/AdvReac Type Severity Reaction Status Date / Time lamotrigine [From Lamictal] Allergy Rash Verified 03/13/17 11:54 trazodone Allergy Unknown Verified 03/13/17 11:54 wasp venom Allergy Swelling Verified 03/13/17 11:54 Home Medications Medication Instructions Recorded Confirmed Last Taken Type ALPRAZolam [Xanax TAB] 1 mg PO BID PRN 03/13/17 03/13/17 03/12/17 History ALPRAZolam [Xanax XR TAB] 2 mg PO QAM PRN 03/13/17 03/13/17 03/12/17 History Dextroamphetamine/Amphetamine 10 mg PO DAILY 03/13/17 03/13/17 03/13/17 History [Dextroamp-Amphetamin 10 mg Tab] Melatonin [Melatin] 3 mg PO DAILY 03/13/17 03/13/17 03/13/17 History Minocycline HCl [Minocin] 100 mg PO DAILY 03/13/17 03/13/17 03/12/17 History Zolpidem [Ambien] 10 mg PO QHS 03/13/17 03/13/17 Unknown History Basaglar 10 units SUB-Q QAM 03/14/17 03/14/17 03/13/17 History Famotidine [Pepcid] 20 mg PO BID #30 tablet 03/14/17 Unknown Rx HYDROcodone/APAP 5-325 [[place] 1 each PO Q6HR PRN #12 tablet 03/14/17 Unknown Rx 5/325] Novolog 5 units SUB-Q AC 03/14/17 03/14/17 03/13/17 History Active Meds: Active Medications Acetaminophen (Tylenol) 650 mg PO Q4H PRN PRN Reason: Pain MILD(1-3)/Fever >100.5/MONTANEZ Alprazolam (Xanax) 1 mg PO BID PRN PRN Reason: Anxiety Last Admin: 03/14/17 09:18 Dose: 1 mg Bisacodyl (Dulcolax) 10 mg AL QDAY PRN PRN Reason: Constipation unrelieved by MOM Dextrose (D50w (25gm)) 50 ml IV PRN PRN PRN Reason: Hypoglycemia Hydromorphone HCl (Dilaudid) 0.5 mg IV Q4H PRN PRN Reason: Pain , Severe (7-10) Last Admin: 03/14/17 07:30 Dose: 0.5 mg Sodium Chloride (Nacl 0.45% 1000 Ml) 1,000 mls @ 125 mls/hr IV DIRECT TOD Last Admin: 03/14/17 06:01 Dose: 125 mls/hr Insulin Aspart (Novolog) 0 units SUB-Q ACHS TOD PRN Reason: Protocol Last Admin: 03/14/17 08:22 Dose: 2 units Magnesium Hydroxide (Milk Of Magnesia) 30 ml PO Q4H PRN PRN Reason: Constipation Miscellaneous Medication (Dextroamphetamine/Amphetamine [Dextroamp-Amphetamin 10 Mg Tab]) 10 mg PO DAILY [facility] Miscellaneous Medication (Minocycline Hcl [Minocin]) 100 mg PO DAILY [facility] Ondansetron HCl (Zofran) 4 mg IV Q8H PRN PRN Reason: N/V unrelieved by Reglan Last Admin: 03/14/17 09:19 Dose: 4 mg Zolpidem Tartrate (Ambien) 10 mg PO QHS [facility] Last Admin: 03/13/17 23:00 Dose: 10 mg Review of Systems - Review of Systems All systems: negative Gastrointestinal: abdominal pain, nausea, hematochezia Exam - Constitutional Vital Signs: Temp Pulse Resp BP Pulse Ox 97.7 F 80 18 124/85 100 03/14/17 07:00 03/14/17 07:00 03/14/17 07:30 03/14/17 07:00 03/14/17 07:00 General appearance: no acute distress, well-nourished - EENT Eyes: PERRL, EOM intact ENT: hearing intact - Neck Neck: supple, normal ROM - Respiratory Respiratory: bilateral: CTA - Cardiovascular Rhythm: regular Heart Sounds: Present: S1 & S2 Extremities: No edema - Gastrointestinal General gastrointestinal: Present: soft, tender (generalized), non-distended, normal bowel sounds - Integumentary Integumentary: Present: warm, dry - Neurologic Neurological: alert and oriented x3 - Labs CBC & Chem 7: 03/13/17 11:59 03/13/17 11:59 Lab Results: Laboratory Results - last 24 hr 03/13/17 03/13/17 03/13/17 19:51 23:29 Unknown POC Glucose 305 H 243 H Urine Opiates Screen Presumptive negative Urine Methadone Screen Presumptive negative Ur Barbiturates Screen Presumptive negative Ur Phencyclidine Scrn Presumptive negative Ur Amphetamines Screen Presumptive positive U Benzodiazepines Scrn Presumptive positive Urine Cocaine Screen Presumptive negative U Marijuana (THC) Screen Presumptive negative Drugs of Abuse Note Disclamer 03/14/17 05:26 POC Glucose 186 H Urine Opiates Screen Urine Methadone Screen Ur Barbiturates Screen Ur Phencyclidine Scrn Ur Amphetamines Screen U Benzodiazepines Scrn Urine Cocaine Screen U Marijuana (THC) Screen Drugs of Abuse Note Assessment and Plan 1.GI bleed 2.hematochezia -HGB 16.1-WNL to high -continue to monitor H&H and transfuse as needed -no active signs of bleeding since admission -pt is hemodynamically stable -CT scan was negative for any acute process but showed nonspecific distal esophageal wall prominence/thickening -pt reports last EGD/colonoscopy was 7 years ago that revealed gastric erosions and a normal colon -pt admits to heartburn and daily NSAID use -Fhx of ulcerative colitis-pt reports he has never been diagnosed with UC himself -will start pt on a daily PPI -avoid NSAIDS -clear liquid diet -pt will need an EGD and a colonoscopy as an outpatient -no further GI recommendations, pt is okay to be D/C per GI standpoint on a daily PPI with f/u appt in the clinic in 2 weeks -need for f/u appt discussed with pt, office information and card given -will sign off <ANDREEA HSU D - Last Filed: 03/14/17 18:37> Exam - Constitutional Vital Signs: Temp Pulse Resp BP Pulse Ox 97.7 F 80 18 124/85 100 03/14/17 07:00 03/14/17 07:00 03/14/17 07:30 03/14/17 07:00 03/14/17 07:00 - Labs CBC & Chem 7: 03/14/17 09:53 03/14/17 09:53 Lab Results: Laboratory Results - last 24 hr 03/13/17 03/13/17 03/14/17 19:51 23:29 05:26 WBC RBC Hgb Hct MCV MCH MCHC RDW Plt Count Sodium Potassium Chloride Carbon Dioxide Anion Gap BUN Creatinine Estimated GFR BUN/Creatinine Ratio Glucose POC Glucose 305 H 243 H 186 H Hemoglobin A1c Calcium 03/14/17 03/14/17 03/14/17 09:53 09:53 09:53 WBC 8.0 RBC 4.77 Hgb 14.2 Hct 41.5 D MCV 87 MCH 30 MCHC 34 RDW 13.5 Plt Count 137 L Sodium 141 Potassium 4.3 Chloride 105.0 Carbon Dioxide 27 Anion Gap 13 BUN 9 Creatinine 0.7 L Estimated GFR > 60 BUN/Creatinine Ratio 12.85 Glucose 249 H POC Glucose Hemoglobin A1c 12.8 H Calcium 8.4 D 03/14/17 11:52 WBC RBC Hgb Hct MCV MCH MCHC RDW Plt Count Sodium Potassium Chloride Carbon Dioxide Anion Gap BUN Creatinine Estimated GFR BUN/Creatinine Ratio Glucose POC Glucose 259 H Hemoglobin A1c Calcium
[2017-03-14 10:30] LABS: Hematocrit 41.5 % (35.5-45.6); Hemoglobin 14.2 gm/dl (11.8-15.2); Mean Corpuscular HGB Conc 34 % (32-34); Mean Corpuscular Hemoglobin 30 pg (28-32); Mean Corpuscular Volume 87 fl (84-94); Platelet Count 137 K/mm3 (140-440); Red Blood Count 4.77 M/mm3 (3.65-5.03); Red Cell Distribution Width 13.5 % (13.2-15.2)
[2017-03-14 10:47] LABS: BUN/Creatinine Ratio 12.85; Blood Urea Nitrogen 9 mg/dL (9-20); Calcium 8.4 mg/dL (8.4-10.2); Carbon Dioxide 27 mmol/L (22-30); Glucose 249 mg/dL (75-100)
[2017-03-14 10:48] LABS: Anion Gap 13 mmol/L; Potassium 4.3 mmol/L (3.6-5.0); Sodium 141 mmol/L (137-145)
[2017-03-14] MEDS ORDERED: PROTONIX PO SCH (11:00)
--- NOTE | 2017-03-14 13:01 | Discharge Summary ---
Providers - Providers Date of Admission: 03/13/17 16:14 Date of discharge: 03/14/17 Attending physician: SORAIDA AGUSTIN 03/13/17 16:20 Consult to Physician [CONS] Routine Consulting Provider: SHARAN RANDALL Reason For Exam: gi bleed Place consult to:: GI/ DR. HSU Notified:: OFFICE Phone number called:: [phone] Was contact made?: Yes If yes, spoke with:: PAT Time called:: 09:14 Comment:: GABRIELA NOTIFIED 03/13/17 20:32 psychiatry consult [Consult to Mental Health] [CONS] Routine Reason For Exam: depression, anxiety Place consult to:: psych Notified:: GERTUDE Time called:: 08:10 Primary care physician: [employer] Hospitalization Condition: Stable Disposition: DC-01 TO HOME OR SELFCARE - Discharge Diagnoses (1) GI bleed Status: Acute Qualifiers: GI bleed type/associated pathology: anorectal hemorrhage Gastritis type: G Qualified Code(s): K62.5 - Hemorrhage of anus and rectum Exam - Constitutional Vitals: Temp Pulse Resp BP Pulse Ox 97.7 F 80 18 124/85 100 03/14/17 07:00 03/14/17 07:00 03/14/17 07:30 03/14/17 07:00 03/14/17 07:00 Plan Activity: advance as tolerated Diet: low fat, low cholesterol, low salt, diabetic Additional Instructions: 1.Follow up with PCP or [facility] in 1 week. 2.Follow up with FERNANDA Salgado in 1 week Follow up with: PRIMARY CARE, [Primary Care Provider] - 3-5 Days Prescriptions: HYDROcodone/APAP 5-325 [[place] 5/325] 1 each PO Q6HR PRN #12 tablet PRN Reason: Pain
== END 2017-03-14 14:00 | disposition home or self-care (01) | DRG 378 ==
LOC: ED 11:39 → 3A 16:14
PROVIDERS: ADMIT Internal Medicine; ATTEND Internal Medicine
DX: K92.2 Gastrointestinal hemorrhage, unspecified (principal); K51.90 Ulcerative colitis, unspecified, without complications; F11.23 Opioid dependence with withdrawal; E87.1 Hypo-osmolality and hyponatremia; I10 Essential (primary) hypertension; R10.9 Unspecified abdominal pain; F41.9 Anxiety disorder, unspecified; F90.9 Attention-deficit hyperactivity disorder, unspecified type; R00.0 Tachycardia, unspecified; E11.65 Type 2 diabetes mellitus with hyperglycemia; Z88.8 Allergy status to other drugs, medicaments and biological substances; Z87.442 Personal history of urinary calculi; Z87.891 Personal history of nicotine dependence; Z82.49 Family history of ischemic heart disease and other diseases of the circulatory system
CPT/HCPCS: 36415; 51701; 74176; 80048; 80053; 80307; 81001; 82140; 82962; 83036; 83690; 84443; 85025; 85027; 87040; 93005; 93010; 96372; 96374; 96375; 96376; C9113; J1170; J1200; J1815; J1885; J2060; J2405; J7030

== ENCOUNTER 2017-03-24 15:11 | Inpatient (IN) | payer OTHER ==
[2017-03-24] MEDS ORDERED: NACL 0.9% 1000 ML 1,000 ML IV ONE ×2 (15:19→15:34)
[2017-03-24 15:50] LABS: Basophils % (Auto) 0.5 % (0.0-1.8); Eosinophils % (Auto) 0.3 % (0.0-4.3); Hematocrit 48.1 % (35.5-45.6); Hemoglobin 16.7 gm/dl (11.8-15.2); Mean Corpuscular HGB Conc 35 % (32-34); Mean Corpuscular Hemoglobin 30 pg (28-32); Mean Corpuscular Volume 86 fl (84-94); Platelet Count 190 K/mm3 (140-440); Red Blood Count 5.62 M/mm3 (3.65-5.03); Red Cell Distribution Width 12.8 % (13.2-15.2); White Blood Count 7.2 K/mm3 (4.5-11.0)
[2017-03-24] MEDS ORDERED: ZOFRAN IV ONE (15:53)
[2017-03-24] MEDS ORDERED: DILAUDID IV ONE (15:53)
[2017-03-24 15:59] LABS: INR 0.9 (0.87-1.13)
[2017-03-24 16:00] LABS: Alanine Aminotransferase 30 units/L (7-56); Albumin 4.8 g/dL (3.9-5); Albumin/Globulin Ratio 1.5 %; Alkaline Phosphatase 114 units/L (35-129); Anion Gap 25 mmol/L; BUN/Creatinine Ratio 8.75; Blood Urea Nitrogen 7 mg/dL (9-20); Calcium 9.6 mg/dL (8.4-10.2); Carbon Dioxide 21 mmol/L (22-30); Chloride 93.1 mmol/L (98-107); Glucose 439 mg/dL (75-100); Lipase 27 units/L (13-60); Partial Thromboplastin Time 27.5 Sec. (24.2-36.6); Potassium 3.6 mmol/L (3.6-5.0); Sodium 135 mmol/L (137-145)
[2017-03-24] MEDS ORDERED: ATIVAN IV ONE (16:37)
--- NOTE | 2017-03-24 16:45 | Emergency Department Report ---
ED Abdominal Pain HPI - General Chief Complaint: GI Bleed Stated Complaint: ABD PAIN/BLEEDING Time Seen by Provider: 03/24/17 15:33 Source: patient, old records reviewed Mode of arrival: Ambulatory Limitations: No Limitations - History of Present Illness Initial Comments: 41 yo Male with a past medical history of chronic pain and narcotic use, diabetes, kidney stones, ADHD, anxiety and previous appendectomy presents to the hospital with complaints of abdominal pain and bloody diarrhea. Patient states that yesterday he began to experience generalized cramping consistent abdominal pain that is constant and stabbing. Pain with palpation. No relieving factors. Patient also having frequent bloody bowel movements and states that there was a lot of blood on his tissue when he wipes. No reports of fever. Patient was here March 13 until March 14 with the same symptoms. CT March 13 showed a distal thickened esophagus and constipation. No other acute findings were identified. Patient had a normal H&H and was advised that he follow up as an outpatient with GI for endoscopy and colonoscopy. When symptoms worsened today patient called the GI doctor and was advised to come to the ER. Per previous medical record review patient's GI symptoms on previous admission with Dr. mars secondary to possible narcotic. We will draw. Patient states he is prescribed Percocet 10/325 mg for chronic neck/cervical pain Severity scale (0 -10): 8 - Related Data Home Medications Medication Instructions Recorded Confirmed Last Taken ALPRAZolam [Xanax TAB] 1 mg PO BID PRN 03/13/17 03/24/17 03/12/17 ALPRAZolam [Xanax XR TAB] 2 mg PO QAM PRN 03/13/17 03/24/17 03/12/17 Dextroamphetamine/Amphetamine 10 mg PO DAILY 03/13/17 03/24/17 03/13/17 [Dextroamp-Amphetamin 10 mg Tab] Melatonin [Melatin] 3 mg PO DAILY 03/13/17 03/24/17 03/13/17 Minocycline HCl [Minocin] 100 mg PO DAILY 03/13/17 03/24/17 03/12/17 Zolpidem [Ambien] 10 mg PO QHS 03/13/17 03/24/17 Unknown Basaglar 10 units SUB-Q QAM 03/14/17 03/24/17 03/13/17 Novolog 5 units SUB-Q AC 03/14/17 03/24/17 03/13/17 Previous Rx's Medication Instructions Recorded Last Taken Type Famotidine [Pepcid] 20 mg PO BID #30 tablet 03/14/17 Unknown Rx HYDROcodone/APAP 5-325 [[place] 1 each PO Q6HR PRN #12 tablet 03/14/17 Unknown Rx 5/325] Allergies Allergy/AdvReac Type Severity Reaction Status Date / Time lamotrigine [From Lamictal] Allergy Rash Verified 03/13/17 11:54 trazodone Allergy Unknown Verified 03/13/17 11:54 wasp venom Allergy Swelling Verified 03/13/17 11:54 ED Review of Systems ROS: Stated complaint: ABD PAIN/BLEEDING Other details as noted in HPI Comment: All other systems reviewed and negative Other: Constitutional: No fevers chills Eyes: No eye pain visual changes ENT: No ear pain or throat pain Neck: Denies pain Respiratory: Denies cough wheezing shortness of breath Cardiovascular: Denies chest pain, palpitations, syncope GI: As per HPI : Denies dysuria, urinary frequency, or urgency Musculoskeletal: Denies back pain Skin: Denies rash, lesions, erythema Neurologic: Denies headache, numbness, weakness Psychiatric: Denies suicidal ideation, hallucinations ED Past Medical Hx - Past Medical History Previous Medical History?: Yes Hx Diabetes: Yes Hx Kidney Stones: Yes Hx Psychiatric Treatment: Yes (anxiety / ADHD) Additional medical history: anxiety. adhd. benign tremor - Surgical History Hx Appendectomy: Yes Additional Surgical History: tonsils and adnoids removed. ACDF- 3 levels of fusion. carpal tunnel release. Chiari malformations. KIDNEY STONE REMOVAL - Social History Smoking Status: Never Smoker Substance Use Type: None - Medications Home Medications: Home Medications Medication Instructions Recorded Confirmed Last Taken Type ALPRAZolam [Xanax TAB] 1 mg PO BID PRN 03/13/17 03/24/17 03/12/17 History ALPRAZolam [Xanax XR TAB] 2 mg PO QAM PRN 03/13/17 03/24/17 03/12/17 History Dextroamphetamine/Amphetamine 10 mg PO DAILY 03/13/17 03/24/17 03/13/17 History [Dextroamp-Amphetamin 10 mg Tab] Melatonin [Melatin] 3 mg PO DAILY 08/03/24/17 03/13/17 History Minocycline HCl [Minocin] 100 mg PO DAILY 03/13/17 03/24/17 03/12/17 History Zolpidem [Ambien] 10 mg PO QHS 03/13/17 03/24/17 Unknown History Basaglar 10 units SUB-Q QAM 03/14/17 03/24/17 03/13/17 History Famotidine [Pepcid] 20 mg PO BID #30 tablet 03/14/17 03/24/17 Unknown Rx HYDROcodone/APAP 5-325 [[place] 1 each PO Q6HR PRN #12 tablet 03/14/17 03/24/17 Unknown Rx 5/325] Novolog 5 units SUB-Q AC 03/14/17 03/24/17 03/13/17 History ED Physical Exam - General Limitations: No Limitations - Other Other exam information: General: Patient cleared up in a position looks uncomfortable Head exam: Atraumatic, normocephalic Eyes exam: Normal appearance ENT: Moist mucous membrane, normal oropharynx Neck exam: Normal inspection, full range of motion, no meningismus nontender Respiratory exam: Clear to auscultation bilateral, no wheezes, rales, crackles Cardiovascular: Tachycardic regular rhythm Abdomen: Soft, nondistended, l generalized abdominal tenderness without rebound or guarding ies abdominal tenderness Rectal: External exam normal without fissure or external hemorrhoid Extremity: Full range of motion normal inspection no deformity Back: Normal Inspection, full range of motion, no tenderness Neurologic: Alert, oriented x3, cranial nerves intact, no motor or sensory deficit Psychiatric: normal affect, normal mood Skin: Warm, dry, intact ED Course Vital Signs 03/24/17 03/24/17 03/24/17 15:15 15:39 15:46 Temperature 98.1 F Pulse Rate 141 H 152 H Respiratory 20 23 Rate Blood Pressure 159/102 122/80 Blood Pressure [Left] O2 Sat by Pulse 98 98 98 Oximetry 03/24/17 03/24/17 03/24/17 15:52 16:43 18:00 Temperature 98.4 F Pulse Rate 146 H 144 H Respiratory 24 20 21 Rate Blood Pressure Blood Pressure 131/78 130/90 [Left] O2 Sat by Pulse 97 97 Oximetry - Reevaluation(s) Reevaluation #1: 03/24/17 18:33 Patient treated with normal saline, insulin, Dilaudid, Zofran, and Ativan. Patient remained tachycardic ED Medical Decision Making - Lab Data Result diagrams: 03/24/17 15:25 03/24/17 15:25 Lab Results 03/24/17 03/24/17 03/24/17 Range/Units 15:25 15:25 15:25 WBC 7.2 (4.5-11.0) K/mm3 RBC 5.62 H (3.65-5.03) M/mm3 Hgb 16.7 H (11.8-15.2) gm/dl Hct 48.1 H (35.5-45.6) % MCV 86 (84-94) fl MCH 30 (28-32) pg MCHC 35 H (32-34) % RDW 12.8 L (13.2-15.2) % Plt Count 190 (140-440) K/mm3 Lymph % (Auto) 18.7 (13.4-35.0) % [place] % (Auto) 6.4 (0.0-7.3) % Eos % (Auto) 0.3 (0.0-4.3) % Baso % (Auto) 0.5 (0.0-1.8) % Lymph # 1.4 (1.2-5.4) K/mm3 [place] # 0.5 (0.0-0.8) K/mm3 Eos # 0.0 (0.0-0.4) K/mm3 Baso # 0.0 (0.0-0.1) K/mm3 Seg Neutrophils % 74.1 H (40.0-70.0) % Seg Neutrophils # 5.3 (1.8-7.7) K/mm3 PT 12.6 (12.2-14.9) Sec. INR 0.90 (0.87-1.13) APTT 27.5 (24.2-36.6) Sec. Sodium 135 L (137-145) mmol/L Potassium 3.6 (3.6-5.0) mmol/L Chloride 93.1 L (98-107) mmol/L Carbon Dioxide 21 L (22-30) mmol/L Anion Gap 25 mmol/L BUN 7 L (9-20) mg/dL Creatinine 0.8 (0.8-1.5) mg/dL Estimated GFR > 60 ml/min BUN/Creatinine Ratio 8.75 % Glucose 439 H (75-100) mg/dL Calcium 9.6 (8.4-10.2) mg/dL Total Bilirubin 0.70 (0.1-1.2) mg/dL AST 15 (5-40) units/L ALT 30 (7-56) units/L Alkaline Phosphatase 114 (35-129) units/L Total Protein 8.0 (6.3-8.2) g/dL Albumin 4.8 (3.9-5) g/dL Albumin/Globulin Ratio 1.5 % Lipase 27 (13-60) units/L Blood Type Antibody Screen 03/24/17 Range/Units 15:25 WBC (4.5-11.0) K/mm3 RBC (3.65-5.03) M/mm3 Hgb (11.8-15.2) gm/dl Hct (35.5-45.6) % MCV (84-94) fl MCH (28-32) pg MCHC (32-34) % RDW (13.2-15.2) % Plt Count (140-440) K/mm3 Lymph % (Auto) (13.4-35.0) % [place] % (Auto) (0.0-7.3) % Eos % (Auto) (0.0-4.3) % Baso % (Auto) (0.0-1.8) % Lymph # (1.2-5.4) K/mm3 [place] # (0.0-0.8) K/mm3 Eos # (0.0-0.4) K/mm3 Baso # (0.0-0.1) K/mm3 Seg Neutrophils % (40.0-70.0) % Seg Neutrophils # (1.8-7.7) K/mm3 PT (12.2-14.9) Sec. INR (0.87-1.13) APTT (24.2-36.6) Sec. Sodium (137-145) mmol/L Potassium (3.6-5.0) mmol/L Chloride (98-107) mmol/L Carbon Dioxide (22-30) mmol/L Anion Gap mmol/L BUN (9-20) mg/dL Creatinine (0.8-1.5) mg/dL Estimated GFR ml/min BUN/Creatinine Ratio % Glucose (75-100) mg/dL Calcium (8.4-10.2) mg/dL Total Bilirubin (0.1-1.2) mg/dL AST (5-40) units/L ALT (7-56) units/L Alkaline Phosphatase (35-129) units/L Total Protein (6.3-8.2) g/dL Albumin (3.9-5) g/dL Albumin/Globulin Ratio % Lipase (13-60) units/L Blood Type A POSITIVE Antibody Screen Negative - EKG Data -: EKG Interpreted by Me (EKG sinus tachycardia [address] elevation [place]) - Medical Decision Making Patient given Dilaudid and normal saline. Also ordered for hypoglycemia. Ativan 1 mg or difficulty and tachycardia. H&H stable without signs of hypotension. Tachycardia likely secondary to pain, dependence, and possible benzodiazepine dependence. - Differential Diagnosis narcotic dependence/withdrawal, ulcerative colitis, Crohn's, diverticulitis Critical Care Time: No Critical care attestation.: If time is entered above; I have spent that time in minutes in the direct care of this critically ill patient, excluding procedure time. ED Disposition Clinical Impression: Abdominal pain, Rectal bleeding, Acute diarrhea, Opiate dependence, Chronic pain, Uncontrolled diabetes mellitus Disposition: 09 OP ADMIT IP TO THIS HOSP Is pt being admited?: Yes Condition: Stable Time of Disposition: 16:40
--- NOTE | 2017-03-24 17:00 | History and Physical Report ---
History of Present Illness Chief complaint: My stomach hurts, I keep bleeding History of present illness: 41 YO Male with ADD, DM, Generalized Anxiety Disorder, Depression, Nephrolithiasis and Chronic Pain, Ulcerative Colitis(suspected) presents to ED for evaluation. Pt states that he has experienced acute onset abdominal pain and bloody stool for the past 2 days, with worsening symptoms over the past 8 hours. began 2 hours ago. Pain states that his pain is 9/10, constant, aching, diffuse, nonradiating. Pt states that he has also experienced multiple large bloody bowel movements in the past 8 hours. Pt is tearful and anxious. Pt denies trauma, ingestion of food/water from new or different sources, fever, chills, back pain, foreign travel, or recent ill contacts, hematemesis. Past History Past Medical History: diabetes, hypertension Past Surgical History: appendectomy, tonsillectomy Social history: single. denies: smoking, alcohol abuse, prescription drug abuse , IV drug use Family history: hypertension Medications and Allergies Allergies Allergy/AdvReac Type Severity Reaction Status Date / Time lamotrigine [From Lamictal] Allergy Rash Verified 03/13/17 11:54 trazodone Allergy Unknown Verified 03/13/17 11:54 wasp venom Allergy Swelling Verified 03/13/17 11:54 Home Medications Medication Instructions Recorded Confirmed Last Taken Type ALPRAZolam [Xanax TAB] 1 mg PO BID PRN 03/13/17 03/24/17 03/12/17 History ALPRAZolam [Xanax XR TAB] 2 mg PO QAM PRN 03/13/17 03/24/17 03/12/17 History Dextroamphetamine/Amphetamine 10 mg PO DAILY 03/13/17 03/24/17 03/13/17 History [Dextroamp-Amphetamin 10 mg Tab] Melatonin [Melatin] 3 mg PO DAILY 03/13/17 03/24/17 03/13/17 History Minocycline HCl [Minocin] 100 mg PO DAILY 03/13/17 03/24/17 03/12/17 History Zolpidem [Ambien] 10 mg PO QHS 03/13/17 03/24/17 Unknown History Basaglar 10 units SUB-Q QAM 03/14/17 03/24/17 03/13/17 History Famotidine [Pepcid] 20 mg PO BID #30 tablet 03/14/17 03/24/17 Unknown Rx HYDROcodone/APAP 5-325 [[place] 1 each PO Q6HR PRN #12 tablet 03/14/17 03/24/17 Unknown Rx 5/325] Novolog 5 units SUB-Q AC 03/14/17 03/24/17 03/13/17 History Review of Systems Constitutional: no weight loss, no weight gain, no fever, no chills Ears, nose, mouth and throat: no ear pain, no ear discharge, no tinnitis, no nose pain, no nasal discharge Cardiovascular: no chest pain, no orthopnea, no palpitations, no rapid/ irregular heart beat, no edema Respiratory: no cough, no cough with sputum, no excessive sputum, no hemoptysis , no shortness of breath Gastrointestinal: abdominal pain, BRBPR, no constipation, no coffee ground emesis, no loss of appetite, no early satiety Genitourinary Male: no dysuria, no hematuria, no flank pain, no discharge, no urinary frequency Rectal: bleeding, no pain, no incontinence Musculoskeletal: no neck stiffness, no neck pain, no shooting arm pain, no arm numbness/tingling, no low back pain Integumentary: no rash, no pruritis, no redness, no sores, no wounds, no jaundice Neurological: no head injury, no transient paralysis, no paralysis, no parathesias, no numbness, no tingling, no syncope Psychiatric: anxiety, no memory loss, no change in sleep habits, no sleep disturbances, no insomnia, no hypersomnia, no change in appetite Endocrine: no cold intolerance, no heat intolerance, no polyphagia, no excessive thirst, no polydipsia Hematologic/Lymphatic: no easy bruising, no easy bleeding Allergic/Immunologic: no urticaria, no allergic rhinitis, no wheezing Exam - Constitutional Vitals: Temp Pulse Resp BP Pulse Ox 98.1 F 146 H 20 131/78 97 03/24/17 15:15 03/24/17 16:43 03/24/17 16:43 03/24/17 16:43 03/24/17 16:43 General appearance: Present: mild distress - EENT Eyes: Present: PERRL ENT: hearing intact, clear oral mucosa - Neck Neck: Present: supple, normal ROM - Respiratory Respiratory effort: normal Respiratory: bilateral: CTA - Cardiovascular Heart Sounds: Present: S1 & S2. Absent: rub, click - Extremities Extremities: pulses symmetrical, No edema Peripheral Pulses: within normal limits - Abdominal General gastrointestinal: Present: soft, tender. Absent: non-distended, hepatomegaly, splenomegaly Localized gastrointestinal: tender: diffuse Male genitourinary: Present: normal - Rectal Rectal Exam: normal exam-external/orifice - Integumentary Integumentary: Present: clear, warm, dry - Musculoskeletal Musculoskeletal: gait normal, strength equal bilaterally - Psychiatric Psychiatric: appropriate mood/affect, intact judgment & insight, agitated - Neurologic Neurologic: CNII-XII intact, moves all extremities Results - Labs CBC & Chem 7: 03/24/17 15:25 03/24/17 15:25 Labs: Abnormal lab results 03/24/17 03/24/17 Range/Units 15:25 15:25 RBC 5.62 H (3.65-5.03) M/mm3 Hgb 16.7 H (11.8-15.2) gm/dl Hct 48.1 H (35.5-45.6) % MCHC 35 H (32-34) % RDW 12.8 L (13.2-15.2) % Seg Neutrophils % 74.1 H (40.0-70.0) % Sodium 135 L (137-145) mmol/L Chloride 93.1 L (98-107) mmol/L Carbon Dioxide 21 L (22-30) mmol/L BUN 7 L (9-20) mg/dL Glucose 439 H (75-100) mg/dL Assessment and Plan - Patient Problems (1) Rectal bleeding Current Visit: Yes Status: Acute Plan to address problem: GI team consulted, ppi therapy, hgb stable, no transfusion at this time. (2) ADD (attention deficit disorder) Current Visit: Yes Status: Acute Qualifiers: Hyperactivity presence: H Attention deficit-hyperactivity disorder type: A Plan to address problem: Resume home medication, (3) Abdominal pain Current Visit: Yes Status: Acute Qualifiers: Abdominal location: A Plan to address problem: CT Abdomen/Pelvis with oral contrast, serial abdominal exam, serial lactic acid (4) Diabetes Current Visit: No Status: Acute Qualifiers: Diabetes mellitus type: D Diabetes mellitus complication status: D Diabetes mellitus complication detail: D Diabetic retinopathy severity: D Proliferative retinopathy type: P Diabetes mellitus macular edema: D Diabetes mellitus terminal make up operator insulin use: D Laterality: L Chronic kidney disease stage: C Plan to address problem: ADA diet, insulin, accu check (5) Ulcerative colitis Current Visit: No Status: Suspected Qualifiers: Ulcerative colitis location: U Digestive disease complication type: with rectal bleeding Plan to address problem: Gi consulted, CT abdomen pelvis, IVF resuscitation, (6) DVT prophylaxis Current Visit: Yes Status: Acute
[2017-03-24] MEDS ORDERED: ZOFRAN IV PRN (17:04)
[2017-03-24] MEDS ORDERED: PROVENTIL IH PRN (17:04)
[2017-03-24] MEDS ORDERED: TYLENOL PO PRN (17:04)
[2017-03-24] MEDS ORDERED: D50W (25GM) Syringe IV PRN (17:06)
[2017-03-24] MEDS ORDERED: NACL 0.45% 1000 ML 1,000 ML IV SCH (18:00)
--- NOTE | 2017-03-24 19:36 | Cat Scan Report ---
FINAL REPORT PROCEDURE: CT ABDOMEN PELVIS W CON TECHNIQUE: Computerized axial tomography of the abdomen and pelvis was performed after the IV injection of iodinated nonionic contrast. HISTORY: ab pain COMPARISON: CT exam dated March 13, 2017 FINDINGS: Focal ground-glass rounded density is seen in the left lower lobe. This is seen on image 11 of series 3 and measures 8 millimeters in diameter. It is not seen on prior study. No other similar focus is seen more anteriorly and inferiorly in the left lower lobe. Findings could be due to mild pneumonia. Atypical pneumonia cannot be completely excluded. Pulmonary contusion or infarction could give a similar appearance. Possible 2 millimeter cyst is seen in the left hepatic lobe but cannot be confirmed due to its tiny size gallbladder and pancreas display no abnormalities. The adrenal glands and abdominal aorta are normal in size. Likely tiny cyst is seen in the lower pole of the left kidney. Right kidney displays no abnormalities. Patient appears to had prior appendectomy. Bladder appears normal. No free pelvic fluid is seen. There is suspicion for wall thickening in the sigmoid colon and possibly the mid to distal descending colon. Mild changes of colitis are not excluded but findings could be due to underdistention. Ascending colon is not well-distended and wall thickness cannot be well evaluated. No evidence of bowel obstruction is seen. IMPRESSION: Possible mild changes of colitis are seen in the sigmoid colon and the distal descending colon but appearance could be artifactual some underdistention of the colon. Two slightly rounded ground-glass densities are seen in the left lower lobe of the lungs, new since prior study. Findings could represent mild pneumonia but pulmonary contusion or infarction could give a similar appearance. Continued CT followup is recommended to assure resolution.
[2017-03-24] MEDS: NOVOLOG SUB-Q SCH (19:53)
[2017-03-24] MEDS ORDERED: NOVOLOG SUB-Q ONE (19:55)
[2017-03-24] MEDS ORDERED: PERCOCET 5/325 PO PRN (22:10)
[2017-03-24] MEDS: MORPHINE IV PRN (23:13)
[2017-03-25] MEDS: NOVOLOG SUB-Q SCH ×2 (00:11→07:00)
[2017-03-25] MEDS: MORPHINE IV PRN ×2 (03:00→07:00)
--- NOTE | 2017-03-25 03:20 | Admit Criteria Form ---
Admission Criteria Documentation: ABDOMINAL PAIN Clinical Indications for Admission to Inpatient Care ( teller/check or initial the applicable condition/criteria): Admission is indicated for ANY ONE of the following (1)(2)(3)(4)(5)(6): [ ]I. Surgery needed that cannot be performed on ambulatory basis [ ]II. Peritoneal signs present (eg, rebound tenderness, rigidity) [ ]III. Evaluation requires patient to not eat or drink for extended period ( eg, more than 24 hours). [ X]IV. Inpatient admission required[B] rather than observation care (see Abdominal Pain: Observation Care guideline as appropriate) because of ANY ONE of the following(7)(8)(9): [ ] a) Hemodynamic instability [ ]b) Severe pain requiring acute inpatient management [ X]c) Identification of etiology or finding that requires inpatient care (eg, aortic dissection, free air,bowel ischemia)(10) [ ]d) Absent bowel sounds with complete ileus (11) [ ]e) Signs of intestinal obstruction[C] [ ]f) Suspected toxic megacolon [ ]g) Severe electrolyte abnormalities requiring inpatient care [ ]h) High fever or infection requiring inpatient admission as indicated by ANY ONE of the following (12)(13): [ ]i) Appropriate outpatient or observation care antimicrobial treatment unavailable, not effective, or not feasible [ ]ii) Documented bacteremia [ ]iii) Temperature greater than 104.9 degrees F (40.5 degrees C) (oral) [ ]iv) Temperature greater than 103.1 degrees F (39.5 degrees C) ( oral) or less than 96.8 degrees F (36 degrees C) (rectal) that does not respond to all emergency treatment measures [ ]i) IV fluid required rather than oral rehydration to replace significant ongoing (eg, for greater than 24 hours) losses (greater than 3 L/m2 per day)(14)(15) [ ]j) Percutaneous or open drainage (eg, abscess, biliary tract) procedures [ ]k) Parenteral nutrition regimen that must be implemented on inpatient basis [ ]l) Other condition, treatment, or monitoring requiring inpatient admission Extended stay beyond goal length of stay may be needed for (1)(3)(4)(10)(16): [ ]a) Surgery (e.g., colectomy, revascularization procedure) [ ]b) Persistent abdominal pain with suspected intra-abdominal process [ ]c) Diagnosed condition requiring continued stay (e.g., pancreatitis, complicated diverticulitis) The original [facility] [employer] content created by [email or web address] has been revised. The portions of the content which have been revised are identified through the use of italic text or in bold, and [facility] [place] [facility] has neither reviewed nor approved the modified material.All other unmodified content is copyright [email or web address]. Please see references footnoted in the original [facility] edition 2017 Admission Criteria Met: Yes
[2017-03-25 07:46] VITALS: BP 144/89
--- NOTE | 2017-03-25 07:59 | Progress Note ---
Assessment and Plan Assessment and plan: Rectal bleeding H&H stable, No transfusion needed at this time. Started on IV Protonix GI team consulted Abdominal pain Resoloved Ulcerative colitis CT of the abdomen/ Pelvis shows mild colitis changes Started on IV fluid GI consult Diabetes Accu-Check before meals and at bedtime. Sliding scale Insulin/ Novolog ADA diet Mild Hyponatremia Started on NS IV fluid that will correct it. Closely monitor electrolytes. ADD (attention deficit disorder) Resume home medication, DVT prophylaxis Just SCD for now because patient is actively bleeding Hospitalist Physical - Constitutional Vitals: Temp Pulse Resp BP Pulse Ox 98.0 F 73 20 144/89 98 03/25/17 07:44 03/25/17 07:44 03/25/17 07:44 03/25/17 07:44 03/25/17 07:44 General appearance: Present: mild distress Results - Labs CBC & Chem 7: 03/24/17 15:25 03/24/17 15:25 Labs: Laboratory Last Values WBC 7.2 K/mm3 (4.5-11.0) 03/24/17 15:25 RBC 5.62 M/mm3 (3.65-5.03) H 03/24/17 15:25 Hgb 16.7 gm/dl (11.8-15.2) H 03/24/17 15:25 Hct 48.1 % (35.5-45.6) H 03/24/17 15:25 MCV 86 fl (84-94) 03/24/17 15:25 MCH 30 pg (28-32) 03/24/17 15:25 MCHC 35 % (32-34) H 03/24/17 15:25 RDW 12.8 % (13.2-15.2) L 03/24/17 15:25 Plt Count 190 K/mm3 (140-440) 03/24/17 15:25 Lymph % (Auto) 18.7 % (13.4-35.0) 03/24/17 15:25 [place] % (Auto) 6.4 % (0.0-7.3) 03/24/17 15:25 Eos % (Auto) 0.3 % (0.0-4.3) 03/24/17 15:25 Baso % (Auto) 0.5 % (0.0-1.8) 03/24/17 15:25 Lymph # 1.4 K/mm3 (1.2-5.4) 03/24/17 15:25 [place] # 0.5 K/mm3 (0.0-0.8) 03/24/17 15:25 Eos # 0.0 K/mm3 (0.0-0.4) 03/24/17 15:25 Baso # 0.0 K/mm3 (0.0-0.1) 03/24/17 15:25 Seg Neutrophils % 74.1 % (40.0-70.0) H 03/24/17 15:25 Seg Neutrophils # 5.3 K/mm3 (1.8-7.7) 03/24/17 15:25 PT 12.6 Sec. (12.2-14.9) 03/24/17 15:25 INR 0.90 (0.87-1.13) 03/24/17 15:25 APTT 27.5 Sec. (24.2-36.6) 03/24/17 15:25 Sodium 135 mmol/L (137-145) L 03/24/17 15:25 Potassium 3.6 mmol/L (3.6-5.0) 03/24/17 15:25 Chloride 93.1 mmol/L (98-107) L 03/24/17 15:25 Carbon Dioxide 21 mmol/L (22-30) L 03/24/17 15:25 Anion Gap 25 mmol/L 03/24/17 15:25 BUN 7 mg/dL (9-20) L 03/24/17 15:25 Creatinine 0.8 mg/dL (0.8-1.5) 03/24/17 15:25 Estimated GFR > 60 ml/min 03/24/17 15:25 BUN/Creatinine Ratio 8.75 % 03/24/17 15:25 Glucose 439 mg/dL (75-100) H 03/24/17 15:25 POC Glucose 243 (70-105) H 03/25/17 00:02 Lactic Acid 1.50 mmol/L (0.7-2.0) 03/24/17 21:10 Calcium 9.6 mg/dL (8.4-10.2) 03/24/17 15:25 Total Bilirubin 0.70 mg/dL (0.1-1.2) 03/24/17 15:25 AST 15 units/L (5-40) 03/24/17 15:25 ALT 30 units/L (7-56) 03/24/17 15:25 Alkaline Phosphatase 114 units/L (35-129) 03/24/17 15:25 Total Protein 8.0 g/dL (6.3-8.2) 03/24/17 15:25 Albumin 4.8 g/dL (3.9-5) 03/24/17 15:25 Albumin/Globulin Ratio 1.5 % 03/24/17 15:25 Lipase 27 units/L (13-60) 03/24/17 15:25 Blood Type A POSITIVE 03/24/17 15:25 Antibody Screen Negative 03/24/17 15:25
[2017-03-25] MEDS ORDERED: DILAUDID IV PRN ×2 (08:21→12:50)
[2017-03-25] MEDS ORDERED: NON-FORMULARY (Melatonin [Melatin] 3 MG) PO SCH (10:00)
[2017-03-25] MEDS ORDERED: PEPCID PO SCH (10:00)
[2017-03-25] MEDS ORDERED: NOVOLOG SUB-Q SCH (11:30)
[2017-03-25] MEDS ORDERED: TYLENOL PO PRN (12:50)
[2017-03-25] MEDS ORDERED: ZOFRAN IM PRN (12:52)
--- NOTE | 2017-03-25 13:26 | Discharge Summary ---
<HESHAM BAINS - Last Filed: 03/25/17 13:36> Providers - Providers Date of Admission: 03/24/17 17:04 Date of discharge: 03/25/17 Attending physician: PATRICK FRANK MD 03/25/17 08:30 Consult to Physician [CONS] Routine Consulting Provider: ILDA HINOJOSA Reason For Exam: rectal bleeding Place consult to:: [facility] gastro 03/25/17 12:55 Consult to Physician [CONS] Routine Reason For Exam: Rectal bleeding Consulting Provider: MARILYN WATSON Place consult to:: yes Phone number called:: yes Primary care physician: PBX TECHNICIAN Hospitalization Reason for admission: Rectal bleeding Condition: Stable Hospital course: Patient is a 41 years old male with past medical of ADD, DM, Generalized Anxiety Disorder, Depression, Nephrolithiasis and Chronic Pain, Ulcerative Colitis(suspected) presents to ED for evaluation. Pt states that he has experienced acute onset abdominal pain and bloody stool for the past 2 days, with worsening symptoms over the past [address] of the abdomen/ Pelvis shows mild colitis changes. Patient was diagnosed with Rectal bleeding,ADD (attention deficit disorder),Abdominal pain, Diabetes and Ulcerative colitis.He was treated with IV fluid, IV antibiotic, insulin and antiemetic's. Patient was co- managed with GI. Patient left against medical advice. Patient was advised to follow up with his primary care. Discharge Diagnosed Rectal bleeding ADD (attention deficit disorder) Abdominal pain Diabetes Ulcerative colitis Disposition: - LEFT AGAINST MED ADVICE Core Measure Documentation - Palliative Care Palliative Care/ Comfort Measures: Not Applicable - Core Measures Any of the following diagnoses?: none Exam - Constitutional Vitals: Temp Pulse Resp BP Pulse Ox 98.0 F 73 20 144/89 98 03/25/17 07:44 03/25/17 07:44 03/25/17 07:44 03/25/17 07:44 03/25/17 08:44 General appearance: Present: no acute distress - EENT Eyes: Present: PERRL ENT: hearing intact - Neck Neck: Present: supple - Respiratory Respiratory effort: normal Respiratory: bilateral: CTA - Cardiovascular Heart rate: 73 Rhythm: regular Heart Sounds: Present: S1 & S2 - Extremities Extremities: no ischemia Peripheral Pulses: within normal limits - Abdominal General gastrointestinal: Present: soft, non-tender Male genitourinary: Present: deferred - Rectal Rectal Exam: deferred - Integumentary Integumentary: Present: clear, warm, dry - Musculoskeletal Musculoskeletal: strength equal bilaterally - Psychiatric Psychiatric: appropriate mood/affect - Neurologic Neurologic: CNII-XII intact - Allied Health Allied health notes reviewed: nursing Plan Activity: no restrictions Weight Bearing Status: Weight Bear as Tolerated Diet: low cholesterol, low salt, diabetic Follow up with: PRIMARY CARE, [Primary Care Provider] - 7 Days <PATRICK FRANK - Last Filed: 03/25/17 17:36> Providers - Providers Date of Admission: 03/24/17 17:04 Attending physician: PATRICK FRANK MD 03/25/17 08:30 Consult to Physician [CONS] Routine Consulting Provider: ILDA HINOJOSA Reason For Exam: rectal bleeding Place consult to:: [facility] gastro 03/25/17 12:55 Consult to Physician [CONS] Routine Consulting Provider: MARILYN WATSON Reason For Exam: Rectal bleeding Place consult to:: yes Phone number called:: yes Primary care physician: PBX TECHNICIAN Hospitalization Time spent for discharge: 31 minutes - Discharge Diagnoses (1) ADD (attention deficit disorder) Status: Acute Qualifiers: Hyperactivity presence: H Attention deficit-hyperactivity disorder type: A (2) Abdominal pain Status: Acute Qualifiers: Abdominal location: A (3) Accelerated hypertension Status: Acute (4) Acute GI bleeding Status: Acute (5) Acute diarrhea Status: Acute (6) Chronic pain Status: Acute Qualifiers: Chronic pain type: C Core Measure Documentation - Palliative Care Palliative Care/ Comfort Measures: Not Applicable - Core Measures Any of the following diagnoses?: none Exam - Constitutional Vitals: Temp Pulse Resp BP Pulse Ox 98.0 F 73 20 144/89 98 03/25/17 07:44 03/25/17 07:44 03/25/17 07:44 03/25/17 07:44 03/25/17 08:44
[2017-03-25] MEDS ORDERED: ROCEPHIN/NS 1 GM/50 ML 1 GM/50 ML BAG IV SCH (14:00)
[2017-03-25] MEDS ORDERED: NACL 0.9% 1000 ML 1,000 ML IV SCH (14:00)
[2017-03-26] MEDS ORDERED: PROTONIX IV SCH (10:00)
== END 2017-03-25 09:50 | disposition left against medical advice (07) | DRG 378 ==
LOC: ED 15:11 → 3A 17:04
PROVIDERS: ADMIT Internal Medicine; ATTEND Internal Medicine
DX: K92.2 Gastrointestinal hemorrhage, unspecified (principal); K51.90 Ulcerative colitis, unspecified, without complications; F11.20 Opioid dependence, uncomplicated; E87.1 Hypo-osmolality and hyponatremia; E11.9 Type 2 diabetes mellitus without complications; F98.8 Other specified behavioral and emotional disorders with onset usually occurring in childhood and adolescence; F41.1 Generalized anxiety disorder; F32.9 Major depressive disorder, single episode, unspecified; G89.29 Other chronic pain; I10 Essential (primary) hypertension; Z87.442 Personal history of urinary calculi; Z79.899 Other long term (current) drug therapy; Z79.4 Long term (current) use of insulin; Z82.49 Family history of ischemic heart disease and other diseases of the circulatory system
CPT/HCPCS: 36415; 74177; 80053; 82140; 82962; 83690; 85025; 85610; 85730; 86850; 86900; 86901; 93005; 93010; 96361; 96374; 96375; J1170; J1815; J2060; J2270; J2405; J7030; Q9967